=== PATIENT | male | born 1935 | race Caucasian/White ===

== ENCOUNTER 2017-05-10 14:26 | Inpatient (IN) | payer MEDICARE ==
[2017-05-10 21:05] LABS: BASOPHILS 0.1 % (0-2); EOSINOPHILS 0.2 % (0-7); HEMATOCRIT 41.8 % (42.0-54.0); HEMOGLOBIN 14.4 g/dL (13.5-17.5); IMMATURE GRANULOCYTES 0.3 % (0-5); LYMPHOCYTES 9.1 % (15-50); MCH 33.5 pg (26.0-34.0); MCHC 34.4 g/dL (31.0-37.0); MCV 97.2 fL (80.0-100.0); MEAN PLATELET VOLUME 10.6 fL (7.4-10.4); NEUTROPHILS 81.3 % (40-80); RDW 13.2 % (11.5-14.5); WBC 10.8 10x3/uL (4.8-10.8)
[2017-05-10 21:06] LABS: PLATELET COUNT 78 10x3/uL (130-400)
[2017-05-10 21:10] LABS: APTT 40.3 SECONDS (22.8-39.4); INR 1.47 (0.85-1.17); PROTIME 17.7 SECONDS (11.6-15.0)
[2017-05-10 21:17] LABS: ALBUMIN 3.1 g/dL (3.4-5.0); ALKALINE PHOSPHATASE 98 U/L (46-116); ALT (SGPT) 44 U/L (10-68); CALC OSMOLALITY 282 mosm/kg (275-300); CALCIUM 8.5 mg/dL (8.5-10.1); CARBON DIOXIDE 24.9 mmol/L (21.0-32.0); CHLORIDE - SERUM 106 mmol/L (98-107); GLUCOSE 129 mg/dL (74-106); POTASSIUM - SERUM 4.3 mmol/L (3.5-5.1); PROTEIN - SERUM 7.3 g/dL (6.4-8.2); SODIUM 139 mmol/L (136-145); UREA NITROGEN 20 mg/dL (7-18); eGFR NON AFRICAN AMERICAN 76 mL/min (90-120)
[2017-05-10 21:29] LABS: PLATELET ESTIMATE DECREASED
[2017-05-10] MEDS ORDERED: ZOCOR20 MG PO (21:29)
[2017-05-10] MEDS ORDERED: LEVOTHYROXINE50 MCG PO (21:30)
--- NOTE | 2017-05-10 21:30 | NUR ---
RECEIVED PT TO FLOOR FROM ER VIA STRETCHER. PT RATES PAIN 9/10 WHEN HE TRIES TO MOVE. LISTED AND REVIEWED HOME MEDS AND HISTORY. COMPLETE ASSESSMENT PER FLOW-SHEET. NO OTHER NEEDS. WILL CONTINUE TO MONITOR.
[2017-05-10] MEDS ORDERED: OMEPRAZOLE20 M1 PO (21:31)
[2017-05-10] MEDS ORDERED: CARAFATE1 G PO (21:31)
[2017-05-10] MEDS ORDERED: MULTIPLE VITAMI1 TA1 PO (21:32)
[2017-05-10] MEDS ORDERED: BAYER CHEWABLE81 MG PO (21:32)
[2017-05-10] MEDS ORDERED: SUDAFED 30 MG T30 MG PO (21:33)
[2017-05-10] MEDS ORDERED: ULTRAM50 MG PO (21:34)
[2017-05-10 23:19] VITALS: BP 154/79; BMI 25.9
[2017-05-11] VITALS: BP 142/73
[2017-05-11 04:00] VITALS: BP 134/60
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
[2017-05-11 08:00] VITALS: BP 142/65
--- NOTE | 2017-05-11 09:00 | NUR ---
PT RATED PAIN 3/10 ON HIS LEFT HIP AND HIS LEFT SIDE OF CHEST. MORPHINE 2MG GIVEN PER ORDERS FOR PAIN. WILL CONTINUE TO MONITOR.
[2017-05-11 09:43] LABS: BASOPHILS 0.1 % (0-2); EOSINOPHILS 1.5 % (0-7); HEMATOCRIT 41.3 % (42.0-54.0); HEMOGLOBIN 14.1 g/dL (13.5-17.5); IMMATURE GRANULOCYTES 0.2 % (0-5); LYMPHOCYTES 7.9 % (15-50); MCH 33.2 pg (26.0-34.0); MCHC 34.1 g/dL (31.0-37.0); MCV 97.2 fL (80.0-100.0); MEAN PLATELET VOLUME 10.7 fL (7.4-10.4); MONOCYTES 5.8 % (2-11); NEUTROPHILS 84.5 % (40-80); PLATELET COUNT 65 10x3/uL (130-400); RBC 4.25 10x6/uL (4.20-6.10); RDW 13.6 % (11.5-14.5); WBC 10.2 10x3/uL (4.8-10.8)
[2017-05-11 10:01] LABS: ALBUMIN 2.8 g/dL (3.4-5.0); ANION GAP 10.9 mmol/L (8-16); BILIRUBIN - TOTAL 1.84 mg/dL (0.2-1.3); CALCIUM 8.1 mg/dL (8.5-10.1); CARBON DIOXIDE 27.1 mmol/L (21.0-32.0); CREATININE - SERUM 1.1 mg/dL (0.6-1.3); PROTEIN - SERUM 7.3 g/dL (6.4-8.2)
--- NOTE | 2017-05-11 10:28 | NUR ---
Rehab Note- Acute Rehab Prescreen Order received. The patient has [facility] and will require a PreAuth prior to an acute rehab stay. Will need PT and OT Eval for PreAuth. Will begin PreAuth process. Thank you for this referral! Carolina Dickson RN Clinical Liaison, [facility] Rehab
[2017-05-11 12:14] VITALS: BP 147/69
--- NOTE | 2017-05-11 15:38 | NUR ---
PT RESTING COMFORTABLY. FAMILY DENIES ANY NEEDS AT THIS TIME. WILL CONTINUE TO ASSESS.
[2017-05-11 16:39] VITALS: BP 168/74
--- NOTE | 2017-05-11 16:47 | NUR ---
PT STATES THAT HE IS COMFORTABLY AT THIS TIME. HE HAS BEEN ABLE TO MOVE LEFT LEG A LITTLE MORE. DENIES ANY NEEDS AT THIS TIME. WILL CONTINUE TO MONITOR.
--- NOTE | 2017-05-11 17:12 | NUR ---
Patient Name: GWEN CRISTINA Admission Status: ER Accout number: [id number] Admission Date: 05-10-2017 : 1935 Admission Diagnosis: Attending: DIPESH DENTON Current LOS: 1 Anticipated DC Date: 05-13-2017 Planned Disposition: [facility] Facility Primary Insurance: [facility] Discharge Planning Comments: CM MET WITH PATIENT AND SON (JOSE ANGEL) REGARDING D/C NEEDS AND PLANS. PATIENT WANTS TO STAY HERE FOR REHAB AND DR. CHERRY PUT IN A REHAB CONSULT. PATIENTS SON IS ALSO CHOOSING A SNF IF PATIENT NOT ACCEPTED HERE. HE WILL LET CM KNOW TOMORROW HIS CHOICE. PATIENT HAS 2 STEPS TO ENTER HOME AND NO STAIRS INSIDE. PATIENTS PCP IS DR. WILCOX AND PHARMACY IS [facility] [address]. PATIENT IS INDEPENDENT WITH HIS CARE AND HAS NO DME AT HOME. CM WILL CONTINUE TO FOLLOW PATIENT WITH D/C NEEDS AND PLANS. PCP DR[facility]- [phone] JOSE ANGEL (SON) [phone] Analysis Manager: Renetta Mccray Is the patient Alert and Oriented? Yes 0 * How many steps to enter\exit or inside your home? 2 0 * PCP DR. WILCOX 0 * Pharmacy [facility] [address] 0 * Preadmission Environment Home Alone 0 * ADLs Independent 0 * Equipment None 0 * List name and contact numbers for known caregivers / representatives who currently or will assist patient after discharge: JOSE ANGEL (SON) [phone] 0 * Community resources currently utilized None 0 * Additional services required to return to the preadmission environment? Yes 0 * Can the patient safely return to the preadmission environment? Yes 0 * Has this patient been hospitalized within the prior 30 days at any hospital? No 0 Grand Total: 0
--- NOTE | 2017-05-11 17:29 | NUR ---
OT NOTE: PT COMPLETED BUE FM SKILLS FOR INCREASED I WITH ADLS. BERNIE KYLE COTA/Braden
--- NOTE | 2017-05-11 19:00 | NUR ---
Received patient resting in bed with eyes closed, assessment completed per flowsheet. Patient AO x4, calm and cooperative. Eyes PERRLA @ 4mm with brisk response, sclera is white. S1/S2 noted NSR on telemetry with HR 94, rhytmic and regular. Breathing is even and unlabored on 2L via NC with O2 sat 96%, lung sounds clear bilateral upper and mid with diminished lower. Abdomen is round and soft with bowel sounds active x4, non-tender. Patient utilizes urinal jug without assistance, clear yellow urine noted in collection. Full ROM all extremities with all pulses palpable, cap refill < 3 sec with skin warm/dry to touch. Patient states pain 6/10 L pelvic area, PRN pain medication given and will reassess. No further needs at this time, all VSS and will continue to monitor.
[2017-05-11 20:00] VITALS: BP 103/68
--- NOTE | 2017-05-11 21:00 | NUR ---
All HS meds given without difficulty, patient denies further needs at this time. All VSS and will continue to monitor.
--- NOTE | 2017-05-11 23:00 | NUR ---
Reassessment completed per flowsheet, patient resting in bed with eyes closed. Patient AO x4, calm and cooperative. S1/S2 noted NSR on telemetry with HR 96, rhythmic and regular. Breathing is even and unlabored on 2L via NC, lung sounds clear bilateral upper and mid with diminished lower. All pulses palpable with cap refill < 3 sec. Patient denies pain or other needs at this time, all VSS and will continue to monitor.
[2017-05-12] VITALS: BP 165/80
--- NOTE | 2017-05-12 01:00 | NUR ---
Patient resting in bed with eyes closed, breathing is even and unlabored. Repositioned for comfort, no further needs at this time and will continue to monitor.
--- NOTE | 2017-05-12 03:00 | NUR ---
Reassessment completed per flowsheet, patient resting in bed with eyes closed. Patient AO x4 calm and cooperative. S1/S2 noted NSR on telemetry with HR 78, rhythmic and regular. Breathing is even and unlabored on 2L via NC with O2 sat 95%. Patient c/o L side pelvic pain, repositioned and will provide medication upon request. All pulses palpable with cap refill < 3 sec, skin warm/dry to touch. No further needs at this time, all VSS and will continue to monitor.
[2017-05-12 04:00] VITALS: BP 149/79
--- NOTE | 2017-05-12 05:00 | NUR ---
AM labs collected without difficulty, patient resting in bed with eyes open. Emptied urinal jug, 125ml dark concentrated urine noted. No further needs at this time, all VSS and will continue to monitor.
[2017-05-12 05:39] LABS: BASOPHILS 0.2 % (0-2); EOSINOPHILS 2.5 % (0-7); HEMATOCRIT 39.3 % (42.0-54.0); HEMOGLOBIN 13.5 g/dL (13.5-17.5); IMMATURE GRANULOCYTES 0.3 % (0-5); LYMPHOCYTES 9.7 % (15-50); MCH 33.5 pg (26.0-34.0); MCHC 34.4 g/dL (31.0-37.0); MCV 97.5 fL (80.0-100.0); MONOCYTES 9.4 % (2-11); NEUTROPHILS 77.9 % (40-80); PLATELET COUNT 61 10x3/uL (130-400); RBC 4.03 10x6/uL (4.20-6.10); RDW 13.3 % (11.5-14.5); WBC 10.6 10x3/uL (4.8-10.8)
[2017-05-12 05:56] LABS: ALBUMIN 2.7 g/dL (3.4-5.0); ALKALINE PHOSPHATASE 93 U/L (46-116); ALT (SGPT) 34 U/L (10-68); BILIRUBIN - TOTAL 2.11 mg/dL (0.2-1.3); CALC OSMOLALITY 273 mosm/kg (275-300); CALCIUM 7.6 mg/dL (8.5-10.1); CARBON DIOXIDE 22.5 mmol/L (21.0-32.0); CHLORIDE - SERUM 101 mmol/L (98-107); CREATININE - SERUM 0.9 mg/dL (0.6-1.3); GLUCOSE 145 mg/dL (74-106); POTASSIUM - SERUM 4.1 mmol/L (3.5-5.1); PROTEIN - SERUM 6.6 g/dL (6.4-8.2); SODIUM 135 mmol/L (136-145); UREA NITROGEN 16 mg/dL (7-18); eGFR NON AFRICAN AMERICAN 86 mL/min (90-120)
--- NOTE | 2017-05-12 07:00 | NUR ---
REPORT RECIEVED ASSUMED CARE. PATIENT IN BED WITH IV INTACT. NO COMPLAINTS OR SIGNS OF DISTRESS. CALL LIGHT WITHIN REACH.
[2017-05-12 08:20] VITALS: BP 160/79
[2017-05-12 12:47] VITALS: BP 155/76
--- NOTE | 2017-05-12 15:04 | NUR ---
PATIENT LAYING IN BED AT THIS TIME WITH IV NTACT. NO COMPLAINT. BSCDS ON AND WORKING. CALL LIGHT WITHIN REACH.
[2017-05-12 15:54] VITALS: BP 147/72
--- NOTE | 2017-05-12 17:40 | NUR ---
PATIENT IN BED SITTING UP EATING. NO COMPLAINTS AT THIS TIME. IV INTACT. CALL LIGHT WITHIN REACH. BSCDS ON AND WORKING.
--- NOTE | 2017-05-12 18:31 | NUR ---
PATIENT IN BED WITH IV INTACT. TOOK BSCDS OFF AT THIS TIME. NO COMPLAINTS OR SIGNS OF DISTRESS. CALL LIGHT WITHIN REACH.
--- NOTE | 2017-05-12 19:25 | NUR ---
SHIFT ASSESSMENT COMPLETE. PT IS A&O X4 AND IS ASKING FOR PAIN MEDS AT THIS TIME. ADMINISTERED PRN MORPHINE. REPOSITIONED FOR COMFORT. S1S2 AUDIBLE, HR 94 NORMAL SINUS RHYTHM. LUNG SOUNDS CLEAR THROUGHOUT ALL LOBES. ABD IS FLAT AND NON TENDER TO TOUCH. BS ACTIVE X4. PT'S URINE IS DARK AND CONCENTRATED. EMPTIED URINAL ON BED SIDE TABLE. RADIAL AND PEDAL PULSES PALP. HE IS IN GOOD SPIRITS WITH NO FURTHER REQUESTS. WILL CONT WITH POC.
[2017-05-12 20:00] VITALS: BP 159/68
--- NOTE | 2017-05-12 23:20 | NUR ---
PT IS COMPLAINING OF GENERALIZED PAIN THAT INCREASES WHEN HE COUGHS. REQUESTS PAIN MEDS. ADMINISTERED PRN PAIN MEDICAITON. WILL CONT WITH POC.
[2017-05-13] VITALS: BP 156/71
--- NOTE | 2017-05-13 03:00 | NUR ---
NO SIGNS OF ACUTE DISTRESS NOTED. WILL CONT WITH POC.
[2017-05-13 04:00] VITALS: BP 159/81
[2017-05-13 05:39] LABS: BASOPHILS 0.2 % (0-2); HEMATOCRIT 38.4 % (42.0-54.0); HEMOGLOBIN 13.3 g/dL (13.5-17.5); IMMATURE GRANULOCYTES 0.3 % (0-5); LYMPHOCYTES 14.3 % (15-50); MCH 33.5 pg (26.0-34.0); MCHC 34.6 g/dL (31.0-37.0); MCV 96.7 fL (80.0-100.0); MEAN PLATELET VOLUME 10.9 fL (7.4-10.4); MONOCYTES 11.4 % (2-11); NEUTROPHILS 71.8 % (40-80); PLATELET COUNT 59 10x3/uL (130-400); RBC 3.97 10x6/uL (4.20-6.10); RDW 13.2 % (11.5-14.5); WBC 9.3 10x3/uL (4.8-10.8)
[2017-05-13 05:54] LABS: ALBUMIN 2.5 g/dL (3.4-5.0); ALKALINE PHOSPHATASE 81 U/L (46-116); ALT (SGPT) 32 U/L (10-68); CALC OSMOLALITY 279 mosm/kg (275-300); CARBON DIOXIDE 25.3 mmol/L (21.0-32.0); CHLORIDE - SERUM 104 mmol/L (98-107); GLUCOSE 133 mg/dL (74-106); POTASSIUM - SERUM 4.1 mmol/L (3.5-5.1); PROTEIN - SERUM 6.5 g/dL (6.4-8.2); SODIUM 138 mmol/L (136-145); UREA NITROGEN 17 mg/dL (7-18); eGFR NON AFRICAN AMERICAN 76 mL/min (90-120)
--- NOTE | 2017-05-13 07:45 | NUR ---
ASSESSMENT COMPLETE, VS STABLE. IV INTACT. SCABS AND SORES TO LEFT UPPER EXT AND LEG. NOT OPEN OR DRAINING. HEALING. DRESSING TO BUTTOCKS CLEAN AND DRY. CALL LIGHT WITHIN REACH.
[2017-05-13 08:00] VITALS: BP 154/73
--- NOTE | 2017-05-13 08:50 | NUR ---
PATIENT UP TO BSC PER PT.
--- NOTE | 2017-05-13 09:00 | NUR ---
PATIENT BACK TO BED WITH ASSIST OF PT. IV INTACT. NO COMPLAINTS. BSCDS PLACED BACK ON PATIENT. CALL LIGHT WITHIN REACH.
[2017-05-13 09:24] LABS: % SATURATION 39 % (15-55); IRON 89 ug/dl (35-150); TOTAL IRON BIND CAPACITY 223 ug/dl (260-445); UNSAT IRON BIND CAPACITY 134 ug/dl (150-375)
--- NOTE | 2017-05-13 11:15 | NUR ---
PATIENT SITTING UP IN BED WITH IV INTACT. EYES CLOSED RESTING. BSCDS ON AND WORKING. CALL LIGHT WITHIN REACH.
[2017-05-13 12:26] VITALS: BP 152/69
--- NOTE | 2017-05-13 13:19 | NUR ---
PATIENT IN BED WITH IV INTACT. NO COMPLAINTS AT THIS TIME. SITTING UP IN BED. STATED HE WOULD EAT LUNCH IN A LITTLE WHILE. BSCDS ON AND WORKING. CALL LIGHT WITHIN REACH. BA ON.
--- NOTE | 2017-05-13 13:25 | NUR ---
OT NOTE: PT RESTING IN BED; NO FAMILY AVAILABLE AT THIS TIME. PT REPORTED THAT HE WAS STILL VERY SORE, HE HAD DIFFICULTY TURNING HIS HEAD TOWARDS THE LEFT. REQUESTED THAT PT SIT ON EDGE OF BED, HOWEVER, HE REPORTED THAT HE HAD JUST BEEN UP TO TOILET WITH PHYS THERAPY , AND HAD JUST RETURNED TO BED. PT AGREEABLE TO BED MOB BUT REQUIRED EXTENSIVE ASSIST. WILL ATTEMPT SIDE OF BED SITTING IN PM AND UE AROM EXS IF TOLERATED
--- NOTE | 2017-05-13 14:24 | NUR ---
CM SPOKE TO PATIENT AND FAMILY IN LENGTH FOR DISCHARGE PLANNING NEEDS. FAMILY WOULD LIKE HIM TO GO TO [facility] IN [place]. REFERRAL SENT AND SPOKE WITH SAILAJA. CM WILL CONTINUE TO FOLLOW AND ASSIST WITH DISCHARGE PLANNING NEEDS.
--- NOTE | 2017-05-13 16:00 | NUR ---
PATIENT IN BED WITH IV INTACT. NO COMPLAINTS OR SIGNS OF DISTRESS. CALL LIGHT WITHIN REACH.
[2017-05-13 16:07] VITALS: BP 140/63
--- NOTE | 2017-05-13 18:45 | NUR ---
PATIENT IN BED WITH EYES CLOSED RESTING QUIETLY. NO COMPLAINTS OR SIGNS OF DISTRESS. BSCDS ON AND WORKING. CALL LIGHT WITHIN REACH.
--- NOTE | 2017-05-13 19:07 | NUR ---
RESIEVED UP IN BED WITH EYES OPEN AND TV ON. AWAKE ALET AND ORIENTED. DENIES ANY PAIN. IV TO LFA WITH NS RUNNING AT KVO. SCD'S IN PLACE AND FUNCTIONING PROPERLY.
[2017-05-13 20:00] VITALS: BP 151/72
[2017-05-14] VITALS: BP 151/67
[2017-05-14 04:00] VITALS: BP 156/71
[2017-05-14 05:24] LABS: BASOPHILS 0.2 % (0-2); EOSINOPHILS 3.1 % (0-7); HEMOGLOBIN 12.9 g/dL (13.5-17.5); IMMATURE GRANULOCYTES 0.1 % (0-5); LYMPHOCYTES 18.8 % (15-50); MCH 33.6 pg (26.0-34.0); MCHC 34.9 g/dL (31.0-37.0); MCV 96.4 fL (80.0-100.0); MEAN PLATELET VOLUME 11.2 fL (7.4-10.4); MONOCYTES 12.6 % (2-11); NEUTROPHILS 65.2 % (40-80); RBC 3.84 10x6/uL (4.20-6.10); RDW 13.3 % (11.5-14.5); WBC 8.3 10x3/uL (4.8-10.8)
[2017-05-14 05:30] LABS: PLATELET COUNT 71 10x3/uL (130-400)
[2017-05-14 06:01] LABS: ALBUMIN 2.4 g/dL (3.4-5.0); ALKALINE PHOSPHATASE 84 U/L (46-116); ALT (SGPT) 31 U/L (10-68); BILIRUBIN - TOTAL 1.96 mg/dL (0.2-1.3); CALC OSMOLALITY 273 mosm/kg (275-300); CARBON DIOXIDE 24.1 mmol/L (21.0-32.0); CHLORIDE - SERUM 103 mmol/L (98-107); CREATININE - SERUM 0.9 mg/dL (0.6-1.3); GLUCOSE 128 mg/dL (74-106); POTASSIUM - SERUM 3.7 mmol/L (3.5-5.1); PROTEIN - SERUM 6.4 g/dL (6.4-8.2); SODIUM 135 mmol/L (136-145); UREA NITROGEN 19 mg/dL (7-18); eGFR NON AFRICAN AMERICAN 86 mL/min (90-120)
--- NOTE | 2017-05-14 07:30 | NUR ---
ASSESSMENT PER FLOW SHEET.PT WIHTOUT DISTRESS.PAIN MEDS ORDERED PER MAR FOR PAIN TO LEFT LEG AND SHOULDER 2/10 SCALE.DENIES FURTHER NEEDS.CALL LIGHT IN REACH.
[2017-05-14 07:51] VITALS: BP 140/75
[2017-05-14 08:20] LABS: FOLATE (FOLIC ACID) - SERUM 10.8 ng/mL (>3.0)
[2017-05-14] MEDS ORDERED: NORCO 7.5/325 T1 TA1 PO (08:34)
[2017-05-14] MEDS ORDERED: ELIQUIS2.5 MG PO (09:52)
--- NOTE | 2017-05-14 11:11 | NUR ---
PATIENT BEING DISCHARGED TODAY TO [facility] IN [place]. PATIENT WILL BE GOING VIA THEIR VAN. SON (JOSE ANGEL) NOTIFIED OF DISCHARGE. PATIENT DENIES ANY OTHER NEEDS AT THIS TIME. PT BEING DISCHARGE TO A SKILLED BED
--- NOTE | 2017-05-14 11:22 | NUR ---
[facility] REPORT GIVEN TO DAPHNE
--- NOTE | 2017-05-14 11:43 | NUR ---
IV DCD WITH CATH INTACT. DISCHARGE INSTRUCTIONS,STATES UNDERSTANDING. WAITING ON RIDE TO [place]
--- NOTE | 2017-05-14 12:48 | NUR ---
[facility]
[2017-05-15 18:09] LABS: HEPARIN INDUCED PLATELET AB 0.644 OD (0.000-0.400)
== END 2017-05-14 12:49 | DRG 536 ==
LOC: D.ER 14:26 → D.MS 20:23
PROVIDERS: Internal Medicine Hematology & Oncology; Nurse Practitioner Acute Care; ADMIT Family Medicine
DX: S32.492A Other specified fracture of left acetabulum, initial encounter for closed fracture (principal); E03.9 Hypothyroidism, unspecified; I25.10 Atherosclerotic heart disease of native coronary artery without angina pectoris; K21.9 Gastro-esophageal reflux disease without esophagitis; V86.59XA Driver of other special all-terrain or other off-road motor vehicle injured in nontraffic accident, initial encounter; D69.6 Thrombocytopenia, unspecified; S30.0XXA Contusion of lower back and pelvis, initial encounter

== ENCOUNTER → 2017-09-02 11:03 | Outpatient (CLI) | payer MEDICARE ==
[~2017-09-02 11:03] MED LIST: BAYER CHEWABLE81 MG PO; CARAFATE1 G PO; ELIQUIS2.5 MG PO; LEVOTHYROXINE50 MCG PO; MULTIPLE VITAMI1 TA1 PO; NORCO 7.5/325 T1 TA1 PO; OMEPRAZOLE20 M1 PO; SUDAFED 30 MG T30 MG PO; ULTRAM50 MG PO; ZOCOR20 MG PO
== END | disposition home or self-care (01) ==
LOC: D.CT 11:03
DX: R51 Headache (principal); R42 Dizziness and giddiness

== ENCOUNTER → 2018-05-24 10:13 | Outpatient (CLI) | payer MEDICARE | END | disposition home or self-care (01) | LOC: D.CT 10:13 | DX: N20.0 Calculus of kidney (principal) ==

== ENCOUNTER 2018-07-23 07:15 | Day surgery (SDC) | payer MEDICARE ==
[2018-07-22 10:51] LABS: BASOPHILS 0.2 % (0-2); HEMATOCRIT 42.4 % (42.0-54.0); HEMOGLOBIN 14.8 g/dL (13.5-17.5); IMMATURE GRANULOCYTES 0.3 % (0-5); LYMPHOCYTES 17.9 % (15-50); MCH 34.7 pg (26.0-34.0); MCHC 34.9 g/dL (31.0-37.0); MCV 99.5 fL (80.0-100.0); MEAN PLATELET VOLUME 10.2 fL (7.4-10.4); MONOCYTES 11.7 % (2-11); NEUTROPHILS 67.9 % (40-80); RBC 4.26 10x6/uL (4.20-6.10); RDW 16.2 % (11.5-14.5); WBC 8.9 10x3/uL (4.8-10.8)
[2018-07-22 11:00] LABS: APTT 35.5 SECONDS (22.8-39.4); INR 1.28 (0.85-1.17); PROTIME 15.4 SECONDS (11.6-15.0)
[2018-07-22 11:04] LABS: ALBUMIN 2.7 g/dL (3.4-5.0); ALKALINE PHOSPHATASE 119 U/L (46-116); ALT (SGPT) 60 U/L (10-68); BILIRUBIN - TOTAL 1.07 mg/dL (0.2-1.3); CALC OSMOLALITY 278 mosm/kg (275-300); CALCIUM 8.5 mg/dL (8.5-10.1); CARBON DIOXIDE 26.7 mmol/L (21.0-32.0); CHLORIDE - SERUM 104 mmol/L (98-107); CREATININE - SERUM 0.9 mg/dL (0.6-1.3); GLUCOSE 93 mg/dL (74-106); POTASSIUM - SERUM 3.7 mmol/L (3.5-5.1); PROTEIN - SERUM 7.9 g/dL (6.4-8.2); SODIUM 139 mmol/L (136-145); UREA NITROGEN 14 mg/dL (7-18); eGFR NON AFRICAN AMERICAN 85 mL/min (90-120)
[2018-07-22 11:08] LABS: PLATELET COUNT 100 10x3/uL (130-400)
[~2018-07-23] VITALS: Ht 170.2 cm; Wt 79.1 kg
[2018-07-23 07:57] VITALS: BP 138/69; BMI 27.3
[2018-07-23 17:20] VITALS: BP 150/92
[2018-07-23 17:26] VITALS: BP 150/92; Ht 170.2 cm; Wt 79.1 kg
[2018-07-23 20:00] VITALS: BP 157/79
--- NOTE | 2018-07-23 21:15 | NUR ---
SPOKE W/DR. BOYER FOR CONSULT ORDERED BY DR VELASQUEZ FOR INCREASED HR AND RHYTHM CHANGES. RECEIVED ORDER AND GAVE LOPRESSOR 50 MG PO. BRUNILDA DRAIN LEAKING AT SIGHT. COPIOUS AMOUNTS OF SEROS[place] FLUID COMING FROM BRUNILDA DRAIN. DR. VELASQUEZ CONNECTED BRUNILDA DRAIN TO WALL SUCTION. CHANGED DRAIN SITE DRESSING. SET UP FURS SALESPERSON PER ORDER AND TEACHING ON USE OF. ASSESSMENT COMPLETE PER FLOW-SHEET. NO OTHER NEEDS. WILL CONTINUE TO MONITOR.
[2018-07-24] VITALS: BP 132/76
[2018-07-24 04:00] VITALS: BP 124/72
[2018-07-24 06:49] LABS: BASOPHILS 0.1 % (0-2); EOSINOPHILS 0 % (0-7); HEMATOCRIT 58.6 % (42.0-54.0); HEMOGLOBIN 20.6 g/dL (13.5-17.5); IMMATURE GRANULOCYTES 0.3 % (0-5); LYMPHOCYTES 6.6 % (15-50); MCH 34.9 pg (26.0-34.0); MCHC 35.2 g/dL (31.0-37.0); MCV 99.3 fL (80.0-100.0); MEAN PLATELET VOLUME 12.4 fL (7.4-10.4); MONOCYTES 4.1 % (2-11); NEUTROPHILS 88.9 % (40-80); PLATELET COUNT 52 10x3/uL (130-400); RDW 16.3 % (11.5-14.5); WBC 10.8 10x3/uL (4.8-10.8)
[2018-07-24 07:22] LABS: ALBUMIN 2.4 g/dL (3.4-5.0); ALKALINE PHOSPHATASE 102 U/L (46-116); ALT (SGPT) 61 U/L (10-68); BILIRUBIN - TOTAL 1.37 mg/dL (0.2-1.3); CALC OSMOLALITY 282 mosm/kg (275-300); CALCIUM 8.7 mg/dL (8.5-10.1); CARBON DIOXIDE 22.3 mmol/L (21.0-32.0); CHLORIDE - SERUM 105 mmol/L (98-107); GLUCOSE 145 mg/dL (74-106); MAGNESIUM - SERUM 1.8 mg/dL (1.8-2.4); PHOSPHOROUS 3.1 mg/dL (2.5-4.9); POTASSIUM - SERUM 4.3 mmol/L (3.5-5.1); PROTEIN - SERUM 7.6 g/dL (6.4-8.2); SODIUM 139 mmol/L (136-145); TROPONIN-I 0.036 ng/mL (0.000-0.060); UREA NITROGEN 19 mg/dL (7-18); eGFR NON AFRICAN AMERICAN 76 mL/min (90-120)
[2018-07-24 07:36] LABS: PLATELET ESTIMATE NORMAL
[2018-07-24 08:30] VITALS: BP 98/78
--- NOTE | 2018-07-24 09:32 | NUR ---
PT ALERT X 4. BREATH SOUNDS CLEAR BILAT. TELEMETRY IN PLACE. STERISTRIP DRESSING TO MIDABDOMEN, CLEAN DRY AND INTACT. DRAIN TO LEFT SIDE OF ABDOMEN, DRAINAGE RED, ATTACHED TO WALL SUCTION. IV TO RIGHT FOREARM, PATENT DRESSING CLEAN DRY AND INTACT. PAIN OF 4/10, MACHINE DESIGN ENGINEER IN PLACE, WILL MONITOR. SCD'S IN PLACE. FAMILY AT BEDSIDE. BED LOW, CALL LIGHT IN REACH, NO OTHER NEEDS AT THIS TIME.
--- NOTE | 2018-07-24 10:55 | OP ---
PATIENT NAME: GWEN CRISTINA MEDICAL RECORD: [id number] :35 LOCATION:D.MS Dai8 ADMISSION DATE: SURGEON: HETAL VELASQUEZ MD DATE OF OPERATION: 07/23/2018 PREOPERATIVE DIAGNOSES: 1. Symptomatic gallstones. 2. Symptomatic ventral hernia. POSTOPERATIVE DIAGNOSES: 1. Symptomatic gallstones with advanced cirrhosis with moderate amount of ascites. 2. Symptomatic incarcerated ventral hernia. PROCEDURES: 1. Laparoscopic cholecystectomy. 2. Intraoperative cholangiography without immediate surgeon interpretation. 3. 14-gauge core needle liver biopsies. 4. Incarcerated ventral hernia repair without mesh. SURGEON: Hetal Velasquez MD ASSISTANT FOOD SERVICE MANAGER: Flor Lacey APN BLOOD LOSS: 50 cc. ANESTHESIA: General. COMPLICATIONS: None. DRAINS: A 10-[place]izen [place] fully fluted closed suction drainage system. The risks, possible complications, and alternatives to the procedure were explained to the patient. He elects to proceed. The indication for the liver biopsy was cirrhosis. OPERATIVE COURSE: The patient was conveyed to the operating room electively on 07/23/2018. General anesthesia was induced by the anesthesia staff. The abdomen was sterilely prepped and draped. An incision was accomplished within the umbilicus. I dissected down to incarcerated preperitoneal fat, which was excised. I then sharply cleaned surrounding connective tissue from the umbilical hernia defect. A 12-mm trocar was advanced down through the umbilical hernia defect. CO2 insufflation was begun. Once a sufficient pneumoperitoneum had been achieved, a 5-mm trocar was inserted in the left upper quadrant. Another 5-mm trocar was inserted in the epigastrium. Another 5-mm trocar was inserted far laterally in the right upper quadrant. During insertion of the trocars, there was no apparent injury to the bowels, any intraperitoneal or retroperitoneal structures. Abdominal survey was undertaken. There was a moderate amount of ascites present. The liver was cirrhotic and this appeared to be advanced cirrhosis. Under laparoscopic guidance, I percutaneously accessed the right upper quadrant with a 14-gauge core needle liver biopsy device. Cores were obtained over the OPERATIVE REPORT [id number] GWEN CRISTINA convexity of the liver. The biopsy sites were made hemostatic with the electrocautery. I advanced a cholangiogram trocar. I punctured the fundus of the gallbladder. I aspirated bile. I then injected dye. Real time cholangiographic images were obtained and these were sent to the radiologist for interpretation. I aspirated bile and withdrew the cholangiogram trocar. The gallbladder was grasped and retracted cephalad. The infundibulum was grasped and retracted laterally. Blunt dissection was begun in the triangle of Calot. One cystic artery and one cystic duct were identified. These were clipped multiply and divided between clips. The gallbladder was then excised from its bed in the liver. It was placed within a bag retrieval device and was withdrawn through the umbilical fascia defect. The 12-mm trocar was replaced. I irrigated and aspirated in the right upper quadrant. There was no bleeding even at low pressure of 8. I advanced a 10-[place]izen [place] closed suction drain through the lateral most trocar site in the right upper quadrant. All the trocars were removed and the abdomen was desufflated. The drain is an indicator drain in case the patient begins to bleed tonight. He is at an increased risk for bleeding due to cirrhosis. The drain was sutured to the skin with 4-0 nylon. I closed the hernia defect with a [id number] #0 Vicryl suture. The herniorrhaphy was then completed with a #1 Surgidac suture. The skin at the umbilicus was closed with interrupted 4-0 Vicryl Rapide sutures. The trocar sites were closed with interrupted intracuticular 3-0 Vicryls. Benzoin and Steri-Strips were applied. The patient was then extubated and conveyed to the postanesthesia care unit, where he was in stable condition. He will be observed overnight for bleeding and he will be given IV narcotic analgesia. I will plan that he will be dismissed home tomorrow after the drain is removed. TRANSINT:[id number] Voice Confirmation ID: [id number] DOCUMENT ID: [id number] HETAL VELASQUEZ MD at 1055 CC: MYLES WILCOX [id number] DICTATION DATE: 07/23/181612 RIVET TESTER: 07/23/182204 [facility] [address] [place] [address]
--- NOTE | 2018-07-24 19:45 | NUR ---
PT STANDING UP BESIDE BED. PULLED RIGHT FOREARM IV OUT. IV RESITED TO RIGHT HAND BY JOSE HINDS. IV FLUIDS RESUMED. BRUNILDA TO WALL SUCTION DRAINING SEROUS FLUID. ORDER TO REMOVE BRUNILDA DRAIN AND PLACE STOMAL APPLIANCE. PT REQUESTS BRUNILDA STAY IN AND HOOKED UP TO SUCTION UNTIL MORNING SO HE CAN TRY TO GET SOME SLEEP. ASSESSMENT COMPLETE PER FLOW-SHEET. WILL CONTINUE TO MONITOR.
[2018-07-24 19:47] VITALS: BP 115/60
[2018-07-25] VITALS: BP 127/75; BP 133/71
[2018-07-25 04:02] VITALS: BP 129/68
--- NOTE | 2018-07-25 06:15 | NUR ---
PULLED BRUNILDA DRAIN AND PUT ON STOMAL APPLIANCE. 825 MLS OUTPUT OF SEROUS DRAINAGE FOR SHIFT. WILL CONTINUE TO MONITOR.
[2018-07-25 09:03] VITALS: BP 131/69
[2018-07-25 09:30] LABS: BASOPHILS 0.1 % (0-2); EOSINOPHILS 0.4 % (0-7); IMMATURE GRANULOCYTES 0.3 % (0-5); LYMPHOCYTES 13.1 % (15-50); MCH 34.8 pg (26.0-34.0); MCHC 34.6 g/dL (31.0-37.0); MCV 100.5 fL (80.0-100.0); MEAN PLATELET VOLUME 10.8 fL (7.4-10.4); MONOCYTES 8.7 % (2-11); NEUTROPHILS 77.4 % (40-80); RDW 16.6 % (11.5-14.5); WBC 13.4 10x3/uL (4.8-10.8)
[2018-07-25 09:32] LABS: HEMATOCRIT 42.2 % (42.0-54.0); HEMOGLOBIN 14.6 g/dL (13.5-17.5); PLATELET COUNT 115 10x3/uL (130-400)
[2018-07-25 09:42] LABS: INR 1.39 (0.85-1.17); PROTIME 16.5 SECONDS (11.6-15.0)
[2018-07-25 09:45] LABS: CALC OSMOLALITY 277 mosm/kg (275-300); CARBON DIOXIDE 23.3 mmol/L (21.0-32.0); CHLORIDE - SERUM 105 mmol/L (98-107); CREATININE - SERUM 0.7 mg/dL (0.6-1.3); GLUCOSE 110 mg/dL (74-106); POTASSIUM - SERUM 4.1 mmol/L (3.5-5.1); SODIUM 137 mmol/L (136-145); UREA NITROGEN 21 mg/dL (7-18)
[2018-07-25 09:46] LABS: eGFR NON AFRICAN AMERICAN > 90 mL/min (90-120)
--- NOTE | 2018-07-25 11:57 | NUR ---
PT ALERT X 4. BREATH SOUNDS CLEAR BILAT. TELEMETRY IN PLACE. IV TO RIGHT HAND, PATENT, DRESSING CLEAN DRY AND INTACT. COLOSTOMY BAG TO SURGICAL INCISION FROM DRAIN SITE ON RIGHT UPPER ABDOMEN, NO OUTPUT. SCD'S IN PLACE. REPORTING PAIN OF 1/10, SPECIALTY MANUFACTURING SUPERVISOR IN PLACE. BED LOW, CALL LIGHT IN REACH, NO OTHER NEEDS AT THIS TIME.
[2018-07-25 12:30] VITALS: BP 133/70
--- NOTE | 2018-07-25 14:23 | NUR ---
SPOKE WITH DR BOYER TO REPORT BIGEMINY PVC'S ON PT. HE STATED WE SHOULD TAKE NO ACTION AT THIS TIME.
[2018-07-25 17:15] VITALS: BP 126/63
[2018-07-25 20:00] VITALS: BP 115/63
[2018-07-26 04:00] VITALS: BP 132/966
--- NOTE | 2018-07-26 04:15 | NUR ---
PT SLEPT MOST OF NIGHT. WOKE UP AND AMBULATED HALLWAYS WITH JEAN-CLAUDE JAIMES. DRAINAGE BAG REMAINS DRY, NO OUTPUT SINCE PUTTING IT ON 24 HOURS AGO. COMPLETE ASSESSMENT PER FLOW-SHEET. WILL CONTINUE TO MONITOR.
[2018-07-26 08:25] VITALS: BP 147/75
[2018-07-26] MEDS ORDERED: METOPROLOL TART50 MG PO (08:48)
[2018-07-26] MEDS ORDERED: ULTRAM50 MG PO (08:49)
--- NOTE | 2018-07-26 09:45 | NUR ---
IV DC'D FROM RIGHT HAND, NO REDNESS OR EDEMA AT SITE. DISCHARGE INSTRUCTIONS GIVEN TO PATIENT, PATIENT VOICED UNDERSTANDING
--- NOTE | 2018-07-26 10:15 | NUR ---
PATIENT REQUEST TO AMBULATE OUT WITH FAMILY MEMBERS TO PRIVATE CAR
[2018-07-27 07:10] LABS: HEPATITIS C ANTIBODY 0.2 S/CO RAT (0.0-0.9)
--- NOTE | 2018-07-29 14:56 | CN ---
PATIENT NAME:GWEN CRISTINA MEDICAL RECORD: [id number] : 35 LOCATION:D.OPS ADMIT DATE: ACCOUNT: [id number] CONSULTING PHYSICIAN: LOYDA BOYER MD REFERRING PHYSICIAN: HETAL VELASQUEZ MD DATE OF CONSULTATION: 07/24/2018 DIAGNOSES: 1. Coronary artery disease. 2. Status post coronary bypass graft surgery. 3. Hyperlipidemia. 4. Dysrhythmia - PVCs. 5. Abnormal ECG. 6. Status post laparoscopic cholecystectomy. HISTORY OF PRESENT ILLNESS: This is a gentleman, who is status post laparoscopic cholecystectomy. In the postop phase, he had multiple PVCs. He was placed on metoprolol 50 mg b.i.d. This resolved the PVCs. Heart rate and blood pressure are much better since being on the metoprolol. He does have a past history of coronary artery disease, coronary bypass graft surgery many years ago. His EKG is abnormal suggesting inferior ischemia. PHYSICAL EXAMINATION: GENERAL APPEARANCE: Well-nourished, well-developed, appears stated age. Level of distress, comfortable. PSYCHIATRIC: Mental status, alert, normal affect. Orientation, oriented to time, place and person. EYES: Lids and conjunctiva, noninjected. No discharge, no pallor. ENT: Lips, teeth, gums, normal dentition. Oropharynx, no cyanosis, no pallor. NECK: Carotid arteries, bilateral normal upstroke, no bruits, no thrills. JUGULAR VEINS: No jugular venous pressure or distention. CERVICAL LYMPH NODES: Nontender, nonenlarged. THYROID: Not enlarged. Nontender. No nodules. LUNGS: Respiratory effort, unlabored. CHEST: Normal curvature. No thoracic deformity. No chest wall tenderness. Percussion, resonant. Auscultation, clear. No wheezes, no rales, no rhonchi. CARDIOVASCULAR: Precordial exam, nondisplaced. No heaves or pericardial thrills. Rate and rhythm, regular. Heart sounds, normal S1, normal S2. No S3, no gallop, no rub. Systolic murmur, not heard. Diastolic murmur, not heard. EXTREMITIES: No cyanosis, no edema. Peripheral pulses, full and equal in all extremities, except as noted. No bruits appreciated. ABDOMEN: Soft, nondistended. Normal aorta. No bruit. Nontender. No masses. Liver, nontender, no hepatomegaly. Spleen, nontender, no splenomegaly. MUSCULOSKELETAL: No joint tenderness. No joint swelling. No erythema. NEUROLOGICAL: Normal gait, normal strength, normal tone. SKIN: Warm and dry. OVERALL IMPRESSION: PVCs have resolved with beta-roseann therapy. We will continue the beta-roseann and we will follow up in the near future for coronary angiography. Further care depends upon the findings of the angiography. TRANSINT:[id number] Voice Confirmation ID: [id number] DOCUMENT ID: [id number] CONSULT REPORT [id number] GWEN CRISTINA, LOYDA SHEA at 1456 CC: [id number] DICTATION DATE: 07/24/18 0946 CROWN IRONER: 07/24/18 1147 [facility] 07/26/18 [id number] [place] [address]
== END 2018-07-26 11:21 | disposition home or self-care (01) ==
LOC: D.OPS 07:15 → D.MS 07:15 → D.OPS 08:00 → D.PAN 09:30 → D.OPS 09:30 → D.MS 16:47 → D.OPS 07-26 11:21
PROVIDERS: Anesthesiology; Surgery
DX: K80.10 Calculus of gallbladder with chronic cholecystitis without obstruction (principal); K74.60 Unspecified cirrhosis of liver; R18.8 Other ascites; K43.6 Other and unspecified ventral hernia with obstruction, without gangrene; Z01.812 Encounter for preprocedural laboratory examination

== ENCOUNTER 2018-09-03 06:59 | Outpatient (CLI) | payer OTHER ==
[~2018-09-03] VITALS: Ht 170.2 cm; Wt 69.5 kg
--- NOTE | ~2018-09-03 | HEMODYNAMI ---
PATIENT:GWEN CRISTINA MEDICAL RECORD: [id number] : 35 LOCATION:DANIEL ADMISSION DATE: 09/03/18 Generatedon:09/03/20189:43 Patient name: GWEN CRISTINA Patient #: [id number] SSN: : 1935 Date of study: 09/03/2018 Page: Of Hemodynamic Procedure Report Patient Data Patient Demographics Procedure consent was obtained First Name: GWEN Gender: Male Last Name: JONNIE : 1935 Middle Initial: DAVID Age: 83 year(s) Patient #: [id number] Race: Unknown Additional ID: [id number] Contact details [address]: [address] [place] [address] [address]IVE State: [place] City: [place] Zip code: [address] Past Medical History Allergies: No known allergies Admission Admission Data Admission Date: 09/03/2018 Admission Time: 6:59 Admit Source: Other Lab Results Lab Result Date: 09/03/2018 Lab Result Time: 7:55 Biochemistry Name Units Result Min Max BUN mg/dl 14 --(--*-)-- 7 18 Creatinine mg/dl 1 --(--*-)-- 0.6 1.3 CBC Name Units Result Min Max Hematocrit % 44.4 --(*---)-- 42 54 Hemoglobin g/dl 15.4 --(-*--)-- 13.5 17.5 Procedure Procedure Types Cath Procedure Diagnostic Procedure LHC LHC w/Coronaries w/Grafts Sedation Charges Moderate Sedation up to 15 minutes PCI Procedure Coronary Stent Coronary Stent Initial Procedure Description Procedure Date Procedure Date: 09/03/2018 Procedure Start Time: 9:22 Procedure End Time: 9:43 Procedure Staff Name Function Jimmy Martin MD Performing Physician Ambrose Choi RT Monitor Nisa Carlson RT Scrub Farheen Fournier RN Nurse Humberto Healy RT Microbiological Lab Technician Procedure Data Cath Procedure Fluoroscopy Diagnostic fluoroscopy Total fluoroscopy Time: 7.6 time: 7.6 min min Diagnostic fluoroscopy Total fluoroscopy dose: dose: 1134 mGy 1134 mGy Contrast Material Contrast Material Type Amount (ml) Isovue 300 125 Entry Location Entry Primary Successful Side Size Upsize Upsize Entry Closure Succes sful Closure Location (Fr) 1 (Fr) 2 (Fr) Remarks Device Remarks Femoral Right 5 Fr 6 Fr Exoseal artery Short Estimated blood loss: 10 ml Diagnostic catheters Device Type Used For End Catheter Placement MULTIPACK Pigtail 5 Fr Procedure catheter MULTIPACK JL 4.0 5Fr Procedure catheter MULTIPACK 3DRC 5Fr Procedure catheter DIAGNOSTIC AR2 MOD 5 Fr Procedure catheter ([id number]) Procedure Complications No complications Procedure Medications Medication Administration Route Dosage 0.9% NaCl I.V. 100 ml/hr Oxygen etCO2 Nasal cannula 2 l/min Lidocaine 2% added to field 20 Heparin Flush Bag added to field 2 bags (1000units/500ml NS) Versed I.V. 2 mg Fentanyl I.V. 50 mcg Versed I.V. 2 mg Fentanyl I.V. 50 mcg Heparin Bolus I.V. 4000 units Integrilin (Bolus I.V. 6.2 ml 2mg/ml) Plavix P.O. 600 mg Hemodynamics Rest HGB: 15.4 (g/dl) Heart Rate: 64 (bpm) Snapshots Pre Cath Intra NCS Post Cath Vital Signs Time Heart Resp SPO2 etCO2 NIBP (mmHg) Rhythm Pain Sedation Rate (ipm) (%) (mmHg) Status Level (bpm) 9:00:18 70 15 95 18.8 170/114(122) NSR 0 (11) 10(A) , No pain 9:04:44 65 20 100 11.3 129/70(92) NSR 0 (11) 10(A) , No pain 9:09:06 62 20 99 11.3 109/53(83) NSR 0 (11) 10(A) , No pain 9:13:16 66 19 98 10.5 106/61(83) NSR 0 (11) 10(A) , No pain 9:17:26 65 20 98 27.2 108/61(87) NSR 0 (11) 10(A) , No pain 9:21:32 65 18 97 28.6 100/71(88) NSR 0 (11) 10(A) , No pain 9:25:39 63 20 98 15.1 109/61(85) NSR 0 (11) 10(A) , No pain 9:29:51 69 17 98 18.8 99/55(79) NSR 0 (11) 9(A) , No pain 9:34:03 76 15 97 18.1 114/43(92) NSR 0 (11) 9(A) , No pain 9:38:15 71 15 98 25.6 103/65(89) NSR 0 (11) 10(A) , No pain 9:42:15 72 15 98 25.6 109/74(88) NSR 0 (11) 10(A) , No pain Medications Time Medication Route Dose Verified Delivered Reason Notes Effectiveness by by 8:59:19 0.9% NaCl I.V. 100 Jimmy Farheen used for ml/hr Veronica Fournier clinical nurse leader 8:59:25 Oxygen etCO2 2 Jimmy Farheen used for Nasal l/min Veronica Fournier procedure cannula RN 8:59:31 Lidocaine 2% added 20ml Jimmy Haywardrey for local to vial Veronica Martin MD anesthetic field 8:59:35 Heparin Flush added 2 Jimmy Jimmy used for Bag to bags Veronica Martin MD procedure (1000units/500ml field NS) 9:21:03 Versed I.V. 2 mg Jimmy Farheen for sedation Veronica Fournier RN 9:21:09 Fentanyl I.V. 50 Jimmy Farheen for sedation mcg Veronica Fournier RN 9:26:35 Versed I.V. 2 mg Jimmy Farheen for sedation Veronica Fournier RN 9:26:39 Fentanyl I.V. 50 Jimmy Farheen for sedation mcg Veronica Fournier RN 9:31:38 Heparin Bolus I.V. 4000 Jimmy Farheen for verifi ed units Veronica Fournier anticoagulation with Dr. DELLA Martin 9:33:47 Integrilin I.V. 6.2 Jimmy Fahreen for wasted (Bolus 2mg/ml) ml Veronica Fournier anticoagulation 3.8mL RN 9:34:04 Plavix P.O. 600 Jimmy Farheen for mg Veronica Fournier antiplatelet RN therapy Procedure Log Time Note 8:34:59 Informed consent obtained and on chart 8:35:02 Admit Source: Other 8:35:19 Diagnostic Cath status Elective 8:35:20 Time tracking: Regular hours (M-F 7:00 - 5:00) 8:35:25 Plan of Care:Hemodynamics will remain stable., Cardiac rhythm will remain stable., Comfort level will be maintained., Respiratory function will remain adequate., Patient/ family verbilizes understanding of procedure., Procedure tolerated without complication., Recovers from procedure without complications.. 8:46:49 Humberto Healy RT(R) sent for patient. Start room use. 8:54:13 Patient received from Pre/Post Procedure Room to CCL 1 Alert and oriented. Tansferred to table in Supine position. 8:54:14 Warm blankets applied, and destinee hugger turned on for patient comfort. 8:54:14 Correct patient and procedure confirmed by team. 8:54:15 ECG and BP/O2 sat monitors applied to patient. 8:54:18 Pre-procedure instructions explained to patient. 8:54:19 Pre-op teaching completed and patient verbalized understanding. 8:54:19 Family in waiting room. 8:54:20 Patient NPO since Midnight. 8:59:08 Vital chart was started 8:59:19 0.9% NaCl 100 ml/hr I.V. was administered by Farheen Fournier RN; used for procedure; 8:59:25 Oxygen 2 l/min etCO2 Nasal cannula was administered by Farheen Fournier RN; used for procedure; 8:59:31 Lidocaine 2% 20ml vial added to field was administered by Jimmy Martin MD; for local anesthetic; 8:59:35 Heparin Flush Bag (1000units/500ml NS) 2 bags added to field was administered by Jimmy Martin MD; used for procedure; 9:05:39 Baseline sample Acquired. 9:05:42 Rhythm: sinus rhythm 9:05:44 Full Disclosure recording started 9:05:52 H&P Date Dictated: 09/01/2018 Within 30 days and on chart., H&P Addendum completed by physician on day of procedure. (MUST COMPLETE FOR ALL OUTPATIENTS). 9:06:01 Patient allergic to No known allergies 9:06:02 Is the patient allergic to Iodine/contrast media? No. 9:06:04 Is patient on blood thinner?No 9:06:06 Patient diabetic? No. 9:06:08 Previous problem with sedation/anesthesia? No ? 9:06:10 Snore? Yes 9:06:11 Sleep apnea? No 9:06:12 Deviated septum? No 9:06:12 Opens mouth fully? Yes 9:06:14 Sticks out tongue? Yes 9:06:18 Airway obstruction? No ? 9:06:27 Dentures? No ? 9:07:22 Pre procedure: right dorsailis pedis pulse 1+ Palpable, but thready & weak; easily obliterated 9:07:24 Patient pain scale 0/10 ?. 9:07:35 IV patent on arrival in left forearm with 0.9% NaCl at [facility]. 9:09: Lab Result : BUN 14 mg/dl 9:: Lab Result : Creatinine 1 mg/dl 9:: Lab Result : Hemoglobin 15.4 g/dl 9:: Lab Result : Hematocrit 44.4 % 9:09: Lab results completed and on chart. 9:09:13 Right groin area was prepped with chlora-prep and draped in sterile fashion 9:09:14 Alarms reviewed by R. N. 9:09:15 Sharps counted by scrub and verified by R.N. 9:09:17 Use device set Femoral Dx 9:09:18 ACIST Syringe (89688) opened to sterile field. 9:09:19 Bag Decanter (2002S) opened to sterile field. 9:09:20 Medline Cath Pack ([id number]) opened to sterile field. 9:09:21 ACIST Hand Control (27300) opened to sterile field. 9:09:21 ACIST Manifold (68864) opened to sterile field. 9:09:22 Tegaderm 4 x 4 (1626W) opened to sterile field. 9:09:24 SHEATH 5FR Covina (VKG661) opened to sterile field. 9:09:27 DIAGNOSTIC Multipack 5Fr catheter set (FC8458) opened to sterile field. 9:09:28 DIAGNOSTIC WIRE .035 260cm J wire (719224) opened to sterile field. 9:09:50 Physician paged 9:18:46 Zero performed for pressure channel P1 9:20:28 --------ALL STOP TIME OUT------ 9:20:29 Final Timeout: patient, procedure, and site verified with staff and physician. All members of the team are in agreement. 9:20:37 Right groin site verified by team. 9::43 Fire Safety Assessment: A--An alcohol-based skin anteseptic being used preoperatively., C--Open oxygen or nitrous oxide is being used., D--An ESU, laser, or fiber-optic light is being used. 9:20:47 Physical assessment completed. ASA score P 2 - A patient with mild systemic disease as per Jimmy Maritn MD. 9:20:50 Sedation plan: IV Moderate Sedation Medication:Versed, Fentanyl 9::03 Versed 2 mg I.V. was administered by Farheen Fournier RN; for sedation; 9::09 Fentanyl 50 mcg I.V. was administered by Farheen Fournier RN; for sedation; 9::41 Procedure started. 9::43 Local anesthetic to right femoral artery with Lidocaine 2% by Jimmy Martin MD.INITIAL ACCESS ONLY 9:23:02 A 5 Fr sheath was inserted into the Right Femoral artery 9:23:26 A MULTIPACK Pigtail 5 Fr catheter was advanced over the wire and used for Procedure. 9::41 LV gram done using TONY 9::43 Injector settings: Ml/sec: 10, Volume: 20, 9::50 EF : 60 % 9:24:51 LV hemodynamics recorded. 9::53 Catheter exchanged over wire. 9::58 A MULTIPACK JL 4.0 5Fr catheter was advanced over the wire and used for Procedure. 9:26:14 LCA angiography performed. 9::35 Versed 2 mg I.V. was administered by Farheen Fournier RN; for sedation; 9::39 Fentanyl 50 mcg I.V. was administered by Farheen Fournier RN; for sedation; 9::46 Catheter exchanged over wire. 9::51 A MULTIPACK 3DRC 5Fr catheter was advanced over the wire and used for Procedure. 9:27:26 LAWSON to LAD angiography performed. 9:28:07 RCA angiography performed. 9:28:16 Catheter exchanged over wire. 9:28:23 A DIAGNOSTIC AR2 MOD 5 Fr catheter ([id number]) was advanced over the wire and used for Procedure. 9:29:21 SVG to Circ angiography performed. 9:29:26 SVG to RCA angiography performed. 9:30:14 Catheter removed. 9:30:27 CHOICE PT Extra Support 182cm wire ([id number]) opened to sterile field. 9:30:28 INFLATOR Merit BasixCompak (ZO6233) opened to sterile field. 9:30:28 SHEATH 6FR Covina (QJE144) opened to sterile field. 9:30:36 GUIDE 6FR XBC 3 ([id number]) opened to sterile field. 9:31:38 Heparin Bolus 4000 units I.V. was administered by Farheen Fournier RN; for anticoagulation; verified with Dr. Martin 9:32:02 Sheath upsized to a 6 Fr Short. 9:32:11 6 Fr XBC 3 guide catheter was inserted over the wire 9:32:45 Guide Catheter removed. unable to cannulate vessel. 9:32:52 GUIDE 6FR EBU 3.0 catheter ([id number]) opened to sterile field. 9:33:47 Integrilin (Bolus 2mg/ml) 6.2 ml I.V. was administered by Farheen Fournier RN; for anticoagulation; wasted 3.8mL 9:34:04 Plavix 600 mg P.O. was administered by Farheen Fournier RN; for antiplatelet therapy; 9:34:13 6 Fr EBU 3.0 guide catheter was inserted over the wire 9:34:21 CHOICE PT ES wire advanced. 9:35:06 Wire advanced across lesion. 9:38:29 Place stent Inflation Number: 1 A INTEGRITY RX 2.25 x 22 stent ([id number]) was prepped and advanced across the Ramus. The stent was deployed at 13 [place] for 0:10 (min:sec). 9:38:31 Stent catheter was removed intact over wire. 9:38:32 Wire removed. 9:38:32 Guide catheter removed. 9:38:41 EXOSEAL 6Fr (EX600) opened to sterile field. 9:38:50 Sheath removed intact; hemostasis achieved with Exoseal to the Right Femoral artery. 9:38:52 Procedure ended.(Physican Out) 9:40:47 Fluoroscopy time 07.60 minutes. 9:40:51 Fluoroscopy dose: 1134 mGy 9:40:51 Flurop Dose total: 1134 9:40:56 Contrast amount:Isovue 300 125ml. 9:40:58 Sharps counted by scrub and verified by R.N. 9:41:24 Insertion/operative site no bleeding no hematoma. 9:41:27 Post-op/insertion site Right Femoral artery dressed using a 4 x 4 and Tegaderm. 9:41:31 Post right femoral artery:stable, soft, clean and dry 9:41:32 Post Procedure Pulses reassessed and unchanged 9:41:34 Post-procedure physical assessment completed. ASA score P 2 - A patient with mild systemic disease as per Jimmy Martin MD. 9:41:37 Post procedure rhythm: unchanged. 9:41:41 Estimated blood loss: 10 ml 9:41:42 Post procedure instruction explained to patient.Patient verbalizes understanding. 9:41:42 Patient needs reinforcement of post procedure teaching. 9:42:01 Procedure type changed to Cath procedure, Diagnostic procedure, LHC, LHC w/Coronaries w/Grafts, Sedation Charges, Moderate Sedation up to 15 minutes, PCI procedure, Coronary Stent, Coronary Stent Initial 9:42:55 Procedure and supply charges have been captured, reviewed, submitted and are correct. 9:42:57 Procedure Complication : No complications 9:43:02 Vital chart was stopped 9:43:03 See physician's report for complete and final results. 9:43:04 Report given to Pre/Post Procedure Room. 9:43:06 Patient transfered to Pre/Post Procedure Room with Stretcher. 9:43:08 Procedure ended. 9:43:08 Full Disclosure recording stopped 9:43:11 End room use (Document Last) Intervention Summary Intervention Notes Time ActionType Lesion and Equipment Action# Pressure Duration Attributes Used 9:38:29 Place stent Ramus INTEGRITY RX 1 13 00:10 2.25 x 22 stent ([id number]) Device Usage Item Name Manufacture Quantity Catalog Number Hospital Part Current Mini mal Lot# / Charge Number Stock Stock Serial# Code ACIST Acist 1 51902 398929 108895 278488 20 Syringe Medical (73168) Systems Inc Bag Decanter Microtek 1 239882 43658 497209 5 () Medical Inc. Medline Cath Medline 1 [id number] 388884 51211 110250 5 Pack ([id number]) ACIST Hand Acist 1 42140 440952 673374 757339 5 Control Medical (45538) Systems Inc ACIST Acist 1 65286 411056 455220 674344 5 [facility] Medical (25657) Systems Inc Tegaderm 4 x 3M 1 1626W 228070 794181 040800 5 4 (1626W) SHEATH 5FR Terumo 1 KOG549 487305 549100 058399 5 Covina (CSO197) DIAGNOSTIC Cardinal 1 JV3039 078646 90916 646279 30 Multipack Health 5Fr catheter set (KS1860) DIAGNOSTIC St Beto 1 029141 912030 410876 170190 30 WIRE .035 260cm J wire (074216) MULTIPACK Cardinal 1 361459 5 Pigtail 5 Fr Health catheter MULTIPACK JL Cardinal 1 681955 5 4.0 5Fr Health catheter MULTIPACK Cardinal 1 534864 5 3DRC 5Fr Health catheter DIAGNOSTIC Cardinal 1 [id number] 061590 381436 885103 20 AR2 MOD 5 Fr Health catheter (338202D) CHOICE PT Rogers 1 [id number] 224727 307460 312355 5 Extra Scientific Support 182cm wire ([id number]) INFLATOR Merit 1 JS6302 818484 050948 590795 15 [facility] Medical BasixCompak (II1178) SHEATH 6FR Terumo 1 XDV547 795253 023012 814691 40 Covina (VYS919) GUIDE 6FR Cardinal 1 08200547 895882 91833 059888 5 XBC 3 Health (55662767) GUIDE 6FR Medtronic 1 [id number] 298860 93189 630197 0 EBU 3.0 catheter ([id number]) INTEGRITY RX Medtronic 1 [id number] 229109 423173 771540 5 [id number] 2.25 x 22 stent ([id number]) EXOSEAL 6Fr Cardinal 1 EX600 313571 053057 401082 10 (EX600) Health Signature Audit [place] Stage Time Signature Unsigned Intra-Procedure 09/03/2018 Ambrose Choi 9:43:25 AM RT(R) Signatures Monitor : Ambrose Choi RT Signature : Date : Time : [facility] [address] [place] [address]
[~2018-09-03 06:59] MED LIST changes: +METOPROLOL TART50 MG PO
[2018-09-03 07:52] VITALS: BP 105/63; Ht 170.2 cm; Wt 69.5 kg
[2018-09-03 08:07] LABS: BASOPHILS 0.7 % (0-2); EOSINOPHILS 3.1 % (0-7); HEMATOCRIT 44.4 % (42.0-54.0); HEMOGLOBIN 15.4 g/dL (13.5-17.5); IMMATURE GRANULOCYTES 0.4 % (0-5); MCH 35.4 pg (26.0-34.0); MCHC 34.7 g/dL (31.0-37.0); MCV 102.1 fL (80.0-100.0); MEAN PLATELET VOLUME 10.3 fL (7.4-10.4); MONOCYTES 9.4 % (2-11); NEUTROPHILS 63.4 % (40-80); PLATELET COUNT 127 10x3/uL (130-400); RBC 4.35 10x6/uL (4.20-6.10); RDW 14.8 % (11.5-14.5); WBC 9.2 10x3/uL (4.8-10.8)
[2018-09-03 08:16] LABS: CALC OSMOLALITY 279 mosm/kg (275-300); CALCIUM 8.2 mg/dL (8.5-10.1); CARBON DIOXIDE 25.4 mmol/L (21.0-32.0); CHLORIDE - SERUM 105 mmol/L (98-107); GLUCOSE 103 mg/dL (74-106); POTASSIUM - SERUM 3.8 mmol/L (3.5-5.1); SODIUM 140 mmol/L (136-145); UREA NITROGEN 14 mg/dL (7-18); eGFR NON AFRICAN AMERICAN 76 mL/min (90-120)
--- NOTE | 2018-09-03 10:08 | NUR ---
RECEIVED PT FROM LINE ANALYST, PT IS VERY DROWSY. DENIES ANY C/O. RESP WITH EASE ON O2 AT 2LPM VIA NC, PT HAS FREQUENT DRY COUGH. SINUS WITH FREQUENT PVC'S, RATE IS 78, BP IS 139/79. FEMSTOP IN PLACE TO CATH SITE, PRESSURE AT 105. PEDAL PULSES PALPABLE. HOB IS FLAT, CALL LIGHT IN REACH, NO FAMILY AT BEDSIDE.
[2018-09-03] MEDS ORDERED: PLAVIX75 MG PO (10:15)
--- NOTE | 2018-09-03 10:20 | NUR ---
PT SLEEPING, RESP WTIH EASE ON O2 AT 2LPM VIA NC. FEMSTOP CDI TO RIGHT GROIN, PEDAL PULSES PALPABLE. NSR WITH FREQUENT PVC'S, SAT IS 98% ON O2 AT 2LPM VIA NC. HOB IS FLAT, CALL LIGHT IN REACH.
--- NOTE | 2018-09-03 10:50 | NUR ---
PT ALERT, DENIES ANY C/O. FEMSTOP INTACT TO RIGHT GROIN, NO BLEEDING OR HEMATOMA NOTED. PEDAL PULSES PALPABLE. HOB IS FLAT. PT JOSEPH SPRITE AND APPLESAUCE WITH NO C/O NAUSEA.
--- NOTE | 2018-09-03 11:29 | NUR ---
PT SLEEPING, RESP WITH EASE ON O2 AT 2LPM VIA NC. FEMSTOP CDI TO RIGHT GROIN, PEDAL PULSES PALPABLE. HOB IS FLAT, CALL LIGHT IN REACH. SINUS RHYTHM WITH PVC'S, BP IS 138/57.
--- NOTE | 2018-09-03 11:45 | NUR ---
FEMSTOP PRESSURE WEANED BY 20 MM HG NO BLEEDING OR HEMATOMA NOTED. PULSES PALPABLE, PT IS ALERT AND DENIES ANY C/O.
--- NOTE | 2018-09-03 12:03 | NUR ---
FEMSTOP PRESSURE DECREASED BY 20 MM HG, GROIN IS STABLE WITH NO BLEEDING OR HEMATOMA NOTED. PEDAL PULSES PALPABLE. VSS. PT IS ALERT AND DENIES ANY C/O.
--- NOTE | 2018-09-03 12:16 | NUR ---
FEMSTOP PRESSURE WEANED COMPLETELY. NO BLEEDING OR HEMATOMA NOTED. PEDAL PULSES PALPABLE. HOB IS FLAT, VSS, JOSEPH PO FLUIDS WITH NO C/O NAUSEA.
--- NOTE | 2018-09-03 12:32 | NUR ---
FEMSTOP IS OFF, DRESSING IS CDI, AREA IS SOFT AND NONTENDER. HOB IS FLAT, CALL LIGHT IN REACH. PEDAL PULSES PALPABLE. VSS, PT IS ALERT AND DENIES ANY C/O.
--- NOTE | 2018-09-03 13:05 | NUR ---
DRESSING CDI TO RIGHT GROIN, AREA IS SOFT AND NONTENDER. PEDAL PULSES PALPABLE. NSR WITH OCCASIONAL PVC'S, PT DENIES ANY C/O CHEST PAIN. VSS, SON AT BEDSIDE. HOB ELEVATED AND SANDWICH SERVED.
--- NOTE | 2018-09-03 13:20 | NUR ---
HOB FULLY ELEVATED. DRESSING CDI TO RIGHT GROIN, AREA IS SOFT AND NONTENDER. PEDAL PULSES PALPABLE. VSS, PT IS ALERT AND DENIES ANY C/O. DC INSTRUCTIONS REVIEWED [facility] PT AND SON WHO VERBALIZE UNDERSTANDING. [facility] CALLED TO [facility] [address] PER PT REQUEST.
--- NOTE | 2018-09-03 13:55 | NUR ---
1340 IV DC'D WITH CATH INTACT. ASSISTED PT WITH DRESSING FOR DC TO HOME. DRESSING REMAINS CDI TO RIGHT GROIN, AREA SOFT AND NONTENDER. PEDAL PULSES PALPABLE. PT AND SON VERBALIZE UNDERSTANDING TO SPECIALIST FIELD ENGINEER [facility] AT [facility] [address] AND TO START THIS MEDICATION TOMORROW. 1350 PT ALERT AND DENIES ANY C/O. PT ESCORTED TO PRIVATE AUTO VIA WC BY NURSE WITH SON DRIVING HIM HOME.
--- NOTE | 2018-09-03 15:09 | OP ---
PATIENT NAME: GWEN CRISTINA MEDICAL RECORD: [id number] :35 LOCATION:D.CAT ADMISSION DATE: SURGEON: LOYDA BOYER MD DATE OF OPERATION: 09/03/2018 PROCEDURES: 1. PTCA stent ramus intermedius. 2. Left heart catheterization. 3. Selective coronary angiography. 4. Vein graft angiography. 5. LAWSON angiography. 6. Left ventriculogram. INDICATION: Angina and coronary artery disease. PROCEDURE IN DETAIL: After informed consent was obtained and after detailed description of risks, benefits as well as alternative therapies, the patient elected to proceed with angiogram and angioplasty. The right femoral area was prepped and draped in normal sterile fashion. Right femoral artery was cannulated via modified Seldinger technique with placement of 6-Indonesian sheath. All catheters exchanged through this sheath. FINDINGS: The left ventriculogram was performed in standard 30-degree TONY view, reveals good cardiac wall motion throughout all segments. Overall ejection fraction estimated 60%. SELECTIVE CORONARY ANGIOGRAPHY: 1. Left main has no significant angiographic disease. 2. Left anterior descending is totally occluded. 3. LAWSON to the LAD is widely patent. Distal LAD is diffusely diseased, but widely patent. 4. Left circumflex is totally occluded. 5. Vein graft to the circumflex is widely patent. 6. Ramus intermedius that is nongrafted has a 75+ percent stenosis in the mid vessel to a relatively large vessel. 7. The right coronary artery is totally occluded. 8. Vein graft to the right coronary artery is widely patent. Distal right coronary artery is diffusely diseased, but widely patent. PTCA STENT OF THE RAMUS INTERMEDIUS: The stent used was a 2.25 x 22 mm Integrity. Result was 0% residual stenosis. OVERALL IMPRESSION: Successful percutaneous transluminal coronary angioplasty stent of the ramus intermedius that is nongrafted going from 75% initial stenosis to 0% residual. TRANSINT:[id number] Voice Confirmation ID: [id number] DOCUMENT ID: [id number] OPERATIVE REPORT [id number] JONNIEGWEN LOYDA LAN MD at 1509 CC: [id number] DICTATION DATE: 09/03/18 0944 PLAN REP: 09/03/18 1211 DEP CLI 09/03/18 [facility] [address] [place] [address]
== END 2018-09-03 13:50 | disposition home or self-care (01) ==
LOC: D.CATH 06:59
PROVIDERS: Internal Medicine Interventional Cardiology
DX: I25.119 Atherosclerotic heart disease of native coronary artery with unspecified angina pectoris (principal); Z01.812 Encounter for preprocedural laboratory examination

== ENCOUNTER → 2019-01-05 10:44 | Outpatient (CLI) | payer OTHER ==
[2018-09-03 07:52] VITALS: BMI 24.0
[~2019-01-05 10:44] MED LIST changes: +PLAVIX75 MG PO
[2019-01-05 12:08] LABS: BASOPHILS 0.3 % (0-2); EOSINOPHILS 2.7 % (0-7); HEMATOCRIT 38.6 % (42.0-54.0); HEMOGLOBIN 13.4 g/dL (13.5-17.5); IMMATURE GRANULOCYTES 0.5 % (0-5); LYMPHOCYTES 15.7 % (15-50); MCH 34.2 pg (26.0-34.0); MCHC 34.7 g/dL (31.0-37.0); MCV 98.5 fL (80.0-100.0); MEAN PLATELET VOLUME 8.9 fL (7.4-10.4); MONOCYTES 8.8 % (2-11); PLATELET COUNT 139 10x3/uL (130-400); RBC 3.92 10x6/uL (4.20-6.10); RDW 14.8 % (11.5-14.5); WBC 5.9 10x3/uL (4.8-10.8)
[2019-01-05 12:25] LABS: ALBUMIN 2.3 g/dL (3.4-5.0); ANION GAP 12.2 mmol/L (8-16); BILIRUBIN - DIRECT 0.43 mg/dL (0.00-0.30); BILIRUBIN - INDIRECT 0.94 mg/dL (0.00-1.00); BILIRUBIN - TOTAL 1.37 mg/dL (0.2-1.3); CALCIUM 8.4 mg/dL (8.5-10.1); CARBON DIOXIDE 25.5 mmol/L (21.0-32.0); CREATININE - SERUM 1.1 mg/dL (0.6-1.3); POTASSIUM - SERUM 3.7 mmol/L (3.5-5.1); PROTEIN - SERUM 8.3 g/dL (6.4-8.2)
[2019-01-05 12:40] LABS: INR 1.49 (0.85-1.17); PROTIME 17.5 SECONDS (11.6-15.0)
== END | disposition home or self-care (01) ==
LOC: D.US 01-04 11:00 → D.LAB 01-04 11:30 → D.US 10:44
PROVIDERS: ATTEND Internal Medicine Gastroenterology
DX: K74.60 Unspecified cirrhosis of liver (principal); R18.8 Other ascites

== ENCOUNTER 2019-01-06 12:38 | Inpatient (IN) | payer OTHER ==
[~2019-01-06] VITALS: Ht 170.2 cm; Wt 68.0 kg
[2019-01-06 13:00] VITALS: BP 118/70; BMI 23.5
[2019-01-06 13:35] LABS: BASOPHILS 0.5 % (0-2); EOSINOPHILS 2.7 % (0-7); HEMATOCRIT 37.7 % (42.0-54.0); HEMOGLOBIN 13.4 g/dL (13.5-17.5); IMMATURE GRANULOCYTES 0.5 % (0-5); LYMPHOCYTES 15.3 % (15-50); MCH 34.7 pg (26.0-34.0); MCHC 35.5 g/dL (31.0-37.0); MCV 97.7 fL (80.0-100.0); MEAN PLATELET VOLUME 9.4 fL (7.4-10.4); MONOCYTES 12.9 % (2-11); NEUTROPHILS 68.1 % (40-80); PLATELET COUNT 149 10x3/uL (130-400); RBC 3.86 10x6/uL (4.20-6.10); RDW 14.7 % (11.5-14.5)
[2019-01-06 13:37] LABS: WBC 7.9 10x3/uL (4.8-10.8)
[2019-01-06 13:47] LABS: ALBUMIN 2.5 g/dL (3.4-5.0); ANION GAP 13.5 mmol/L (8-16); BILIRUBIN - TOTAL 1.35 mg/dL (0.2-1.3); CALCIUM 8.6 mg/dL (8.5-10.1); CARBON DIOXIDE 24.9 mmol/L (21.0-32.0); CREATININE - SERUM 1.2 mg/dL (0.6-1.3); POTASSIUM - SERUM 3.4 mmol/L (3.5-5.1); PROTEIN - SERUM 8.9 g/dL (6.4-8.2)
[2019-01-06 18:07] VITALS: BP 108/68
--- NOTE | 2019-01-06 19:45 | NUR ---
PT RESTING IN BED. NO S/S OF ACUTE DISTRESS. ER, RN SITED IV TO R WRIST.
--- NOTE | 2019-01-06 19:53 | NUR ---
BASILIO POPN ASSISTED WITH PT CARE TODAY. PT DID NOT WANT ME IN THERE ROOM. ASSISTED THE [employer] SPECIAL EDUCATION TEACHER WITH CALLING MD FOR NEW ORDERS AND REPORTING PT CHANGE. NO S/S OF ACUTE DISTRESS.
[2019-01-06 20:00] VITALS: BP 124/80
--- NOTE | 2019-01-06 20:40 | NUR ---
LYING QUEITLY WITH NO DISTRESS NOTED. RESP EVEN AND UNALBORED. NO COMPALITNS VOICED AT THIS TIME.IV TO RFA WITHOUT REDNESS OR EDEMA NOTED.CL IN REACH
[2019-01-07] VITALS: BP 123/70
[2019-01-07 04:00] VITALS: BP 120/70
[2019-01-07 04:08] LABS: BASOPHILS 0.2 % (0-2); EOSINOPHILS 3.1 % (0-7); HEMATOCRIT 33.3 % (42.0-54.0); HEMOGLOBIN 11.6 g/dL (13.5-17.5); IMMATURE GRANULOCYTES 0.3 % (0-5); LYMPHOCYTES 14.3 % (15-50); MCH 33.8 pg (26.0-34.0); MCHC 34.8 g/dL (31.0-37.0); MCV 97.1 fL (80.0-100.0); MEAN PLATELET VOLUME 9.4 fL (7.4-10.4); MONOCYTES 12.9 % (2-11); NEUTROPHILS 69.2 % (40-80); PLATELET COUNT 124 10x3/uL (130-400); RBC 3.43 10x6/uL (4.20-6.10); RDW 14.6 % (11.5-14.5)
[2019-01-07 04:16] LABS: WBC 5.8 10x3/uL (4.8-10.8)
--- NOTE | 2019-01-07 04:17 | NUR ---
I have reviewed this patient and I concur with the Shift Assessment completed by the Licensed Practical Nurse today this shift.
[2019-01-07 04:24] LABS: % SATURATION 40 % (15-55); IRON 57 ug/dl (35-150); TOTAL IRON BIND CAPACITY 142 ug/dl (260-445); UNSAT IRON BIND CAPACITY 85 ug/dl (150-375)
[2019-01-07 04:25] LABS: INR 1.5 (0.85-1.17); PROTIME 17.5 SECONDS (11.6-15.0)
[2019-01-07 04:36] LABS: ALKALINE PHOSPHATASE 77 U/L (46-116); CALC OSMOLALITY 273 mosm/kg (275-300); CALCIUM 8.4 mg/dL (8.5-10.1); CHLORIDE - SERUM 102 mmol/L (98-107); FERRITIN 280 ng/mL (3-244); GLUCOSE 115 mg/dL (74-106); MAGNESIUM - SERUM 1.8 mg/dL (1.8-2.4); PHOSPHOROUS 2.5 mg/dL (2.5-4.9); POTASSIUM - SERUM 3.3 mmol/L (3.5-5.1); PROTEIN - SERUM 7.4 g/dL (6.4-8.2); SODIUM 136 mmol/L (136-145); THYROID STIMULATING HORMONE 5.73 uIU/mL (0.36-3.74); UREA NITROGEN 15 mg/dL (7-18); eGFR NON AFRICAN AMERICAN 76 mL/min (90-120)
[2019-01-07 04:50] LABS: ALT (SGPT) 16 U/L (10-68)
[2019-01-07 09:39] VITALS: BP 121/68
[2019-01-07 10:28] LABS: PLT FUNCT.(P2Y12) PLAVIX 77 PRU (194-418)
[2019-01-07 13:32] VITALS: BP 123/70
[2019-01-07 14:05] VITALS: Ht 170.2 cm; Wt 68.0 kg
--- NOTE | 2019-01-07 16:46 | NUR ---
I have reviewed this patient and I concur with the Shift Assessment completed by the Licensed Practical Nurse today this shift.
[2019-01-07 17:07] VITALS: BP 117/69
[2019-01-07 19:58] VITALS: BP 109/67
--- NOTE | 2019-01-07 21:00 | NUR ---
REPORTS DISCOMFORT TO ABDOMEN. ABDOMEN FIRM AND DISTENDING. NON TENDER TO PALPATION. DENIES NEEDS FOR PAIN MEDICATION. WILL CONTINUE TO MONITOR CLOSELY.
--- NOTE | 2019-01-08 02:46 | NUR ---
I have reviewed this patient and I concur with the Shift Assessment completed by the Licensed Practical Nurse today this shift.
[2019-01-08 03:43] LABS: APPEARANCE CLEAR (CLEAR); BILIRUBIN NEGATIVE (NEGATIVE); COLOR STRAW (YELLOW); GLUCOSE NEGATIVE (NEGATIVE); KETONE NEGATIVE (NEGATIVE); NITRITE NEGATIVE (NEGATIVE); PROTEIN NEGATIVE (NEGATIVE); SPECIFIC GRAVITY 1.005 (1.005-1.020); UROBILINOGEN NORMAL (NORMAL)
[2019-01-08 04:00] VITALS: BP 118/64
[2019-01-08 06:12] LABS: FOLATE (FOLIC ACID) - SERUM 5.2 ng/mL (>3.0)
[2019-01-08 06:56] LABS: BASOPHILS 0.4 % (0-2); HEMATOCRIT 34.2 % (42.0-54.0); IMMATURE GRANULOCYTES 0.4 % (0-5); LYMPHOCYTES 14.9 % (15-50); MCH 34.2 pg (26.0-34.0); MCHC 35.1 g/dL (31.0-37.0); MCV 97.4 fL (80.0-100.0); MEAN PLATELET VOLUME 9.7 fL (7.4-10.4); MONOCYTES 15.6 % (2-11); NEUTROPHILS 64.7 % (40-80); PLATELET COUNT 136 10x3/uL (130-400); RBC 3.51 10x6/uL (4.20-6.10); RDW 14.7 % (11.5-14.5); WBC 5.5 10x3/uL (4.8-10.8)
[2019-01-08 07:24] LABS: ANION GAP 10.2 mmol/L (8-16); BILIRUBIN - TOTAL 1.15 mg/dL (0.2-1.3); CALCIUM 7.9 mg/dL (8.5-10.1); CARBON DIOXIDE 27.3 mmol/L (21.0-32.0); CREATININE - SERUM 1.1 mg/dL (0.6-1.3); MAGNESIUM - SERUM 1.5 mg/dL (1.8-2.4); PHOSPHOROUS 2.3 mg/dL (2.5-4.9); POTASSIUM - SERUM 3.5 mmol/L (3.5-5.1); PROTEIN - SERUM 7.4 g/dL (6.4-8.2)
--- NOTE | 2019-01-08 08:00 | NUR ---
LYING IN BED,WITHOUT DISTRESS.CALL LIGHT IN REACH
[2019-01-08 08:30] VITALS: BP 124/67
[2019-01-08 12:16] VITALS: BP 122/76
[2019-01-08 16:55] VITALS: BP 127/74
[2019-01-08 20:00] VITALS: BP 132/70
--- NOTE | 2019-01-08 20:00 | NUR ---
ALERT RESTING IN BED DENIES NEEDS AT THIS TIME, SEE SHIFT ASSESSMENT, CALL LIGHT IN REACH
[2019-01-09] VITALS: BP 129/63
[2019-01-09 04:00] VITALS: BP 138/60
[2019-01-09 06:50] LABS: BASOPHILS 0.2 % (0-2); EOSINOPHILS 3.8 % (0-7); HEMATOCRIT 35.2 % (42.0-54.0); HEMOGLOBIN 12.3 g/dL (13.5-17.5); IMMATURE GRANULOCYTES 0.5 % (0-5); MCH 34.4 pg (26.0-34.0); MCHC 34.9 g/dL (31.0-37.0); MCV 98.3 fL (80.0-100.0); MEAN PLATELET VOLUME 9.4 fL (7.4-10.4); MONOCYTES 14.1 % (2-11); NEUTROPHILS 64.4 % (40-80); PLATELET COUNT 141 10x3/uL (130-400); RBC 3.58 10x6/uL (4.20-6.10); RDW 14.9 % (11.5-14.5); WBC 5.5 10x3/uL (4.8-10.8)
[2019-01-09 08:34] LABS: ALKALINE PHOSPHATASE 75 U/L (46-116); ALT (SGPT) 19 U/L (10-68); BILIRUBIN - TOTAL 1.09 mg/dL (0.2-1.3); CALC OSMOLALITY 270 mosm/kg (275-300); CARBON DIOXIDE 26.1 mmol/L (21.0-32.0); CHLORIDE - SERUM 101 mmol/L (98-107); GLUCOSE 82 mg/dL (74-106); PHOSPHOROUS 2.5 mg/dL (2.5-4.9); POTASSIUM - SERUM 3.5 mmol/L (3.5-5.1); PROTEIN - SERUM 7.5 g/dL (6.4-8.2); SODIUM 136 mmol/L (136-145); UREA NITROGEN 13 mg/dL (7-18); eGFR NON AFRICAN AMERICAN 76 mL/min (90-120)
[2019-01-09 08:39] LABS: MAGNESIUM - SERUM 1.9 mg/dL (1.8-2.4)
--- NOTE | 2019-01-09 08:44 | NUR ---
PT ALERT X 4. BREATH SOUNDS CLEAR BILAT. TELEMETRY IN PLACE. ABDOMEN DISTENDED AND FIRM, PT REPORTING SLIGHT TENDERNESS. IV TO RIGHT FOREARM, PATENT, DRESSING CDI. PT REPORTING NO REAL PAIN. BED LOW, CALL LIGHT IN REACH. NO OTHER NEEDS AT THIS TIME. CONSENTS SIGNED.
[2019-01-09 09:25] VITALS: BP 125/68
[2019-01-09 13:00] VITALS: BP 124/68
[2019-01-09 18:20] VITALS: BP 118/74
[2019-01-09 20:00] VITALS: BP 127/69
--- NOTE | 2019-01-09 22:00 | NUR ---
ALERT SITTING UP IN CHAIR, DENIES NEEDS AT THIS TIME CALL ETHAN GUERRA
[2019-01-10] VITALS (13 sets, daily range): BP systolic 97–121; BP diastolic 47–64
--- NOTE | 2019-01-10 07:35 | NUR ---
PT RESTING IN BED, EYES OPEN. NO C/O PAIN. NO S/S OF ACUTE DISTRESS NOTED. ALERT AND ORIENTED. ABDOMEN DISTENDED. PT SCHEDULED FOR PARACENTESIS TODAY. LOVENOX ON HOLD. ON ELECTROLYTE PROTOCOL. IV TO RIGHT FOREARM, NS INFUSING @ 30ML/HR. SITE PATENT WITHOUT REDNESS OR SWELLING. PT DENIES ANYTHING FURTHER AT THIS TIME. CALL LIGHT IN REACH. WILL CONTINUE TO MONITOR.
[2019-01-10 08:04] LABS: BASOPHILS 0.3 % (0-2); EOSINOPHILS 3.9 % (0-7); HEMATOCRIT 34.9 % (42.0-54.0); HEMOGLOBIN 12.3 g/dL (13.5-17.5); IMMATURE GRANULOCYTES 0.5 % (0-5); LYMPHOCYTES 16.5 % (15-50); MCH 34.4 pg (26.0-34.0); MCHC 35.2 g/dL (31.0-37.0); MCV 97.5 fL (80.0-100.0); MEAN PLATELET VOLUME 9.2 fL (7.4-10.4); MONOCYTES 14.4 % (2-11); NEUTROPHILS 64.4 % (40-80); PLATELET COUNT 139 10x3/uL (130-400); RBC 3.58 10x6/uL (4.20-6.10); RDW 14.8 % (11.5-14.5); WBC 6.4 10x3/uL (4.8-10.8)
[2019-01-10 08:14] LABS: APTT 35.4 SECONDS (22.8-39.4); INR 1.47 (0.85-1.17); PROTIME 17.2 SECONDS (11.6-15.0)
[2019-01-10 08:19] LABS: ALBUMIN 2.1 g/dL (3.4-5.0); BILIRUBIN - TOTAL 1.12 mg/dL (0.2-1.3); CALCIUM 8.2 mg/dL (8.5-10.1); CARBON DIOXIDE 27.7 mmol/L (21.0-32.0); CREATININE - SERUM 1.1 mg/dL (0.6-1.3); MAGNESIUM - SERUM 1.7 mg/dL (1.8-2.4); PHOSPHOROUS 2.7 mg/dL (2.5-4.9); POTASSIUM - SERUM 3.7 mmol/L (3.5-5.1); PROTEIN - SERUM 7.6 g/dL (6.4-8.2)
--- NOTE | 2019-01-10 09:55 | EC ---
PATIENT:GWEN CRISTINA DATE OF SERVICE: 01/06/19 SEX: M MEDICAL RECORD: [id number] DATE OF : 35 LOCATION:D.MS Dai222 AGE OF PATIENT: 83 ADMISSION DATE: 01/06/19 REFERRING PHYSICIAN: INTERPRETING PHYSICIAN: ERON JEROME MD ECHOCARDIOGRAM REPORT ECHO CHARGES 4 ECHO COMPLETE Date: 01/07/19 CLINICAL DIAGNOSIS: EDEMA - H/O CAD/CABG ECHOCARDIOGRAPHIC MEASUREMENTS (adult normal given) AC root (d.<3.7cm) 3.3 cm LV Septum d (<1.2 cm> 0.9 cm Valve Excursion 1.1 cm LV Septum (systole) 1.3 cm Left Atria (s.<4.0cm> 4.6 cm LVPW d(<1.2cm) 0.9 cm RV (d.<2.3cm) 2.3 cm LVPW (sytole) 1.6 cm LV diastole(<5.6CM) 5.0 cm MV E-F(>70mm/sec) cm LV systole 2.9 cm LVOT Diameter 1.6 cm MV exc.(>10mm) cm Est.ejection fraction (50-75%) % DOPPLER: LVIT cm/sec A 138 cm/sec E 114 cm/sec LA cm/sec RVSP 35.0 mmHg LVOT 100 cm/sec AOP1/2T m/s Asc. Ao 137 cm/sec RVOT 53.0 cm/sec RA cm/sec PA 83.0 cm/sec AV Gradient Peak 7.5 mmHg AV Mean 3.5 mmHg AV Area 1.9 cm MV Gradient Peak 9.9 mmHg MV Mean 3.7 mmHg MV Area cm COMMENTS: Manager Orange: 1 KAYCEE WANGOE Electroencephalograph Technologist: 2 Dr. Medeiros TAPE# PACS Pericardial Effusion N DATE OF SERVICE: Adequate 2D, color flow, spectral Doppler, and M-Mode No LVH. LV internal dimensions are normal. Wall motion is normal. EF is greater than or equal to 55%. Aortic valve sclerosis is without stenosis by Doppler interrogation. Left atrium is dilated at 4.6 cm. Mitral valve is thickened with mitral annular calcification with only mild MR. Right-sided chambers are grossly normal. Mild TR. ECHOCARDIOGRAM REPORT [id number] GWEN CRISTINA TRANSINT:[id number] Voice Confirmation ID: [id number] DOCUMENT ID: [id number] ERON JEROME MD at 0955 CC: [id number] DICTATION DATE: 01/07/19 1130 GEOSPATIAL EXTRACTOR ANALYSIS: 01/07/19 1338 ADM IN [facility] [address] [place] [address]
--- NOTE | 2019-01-10 10:58 | NUR ---
I have reviewed this patient and I concur with the Shift Assessment completed by the Licensed Practical Nurse today this shift.
--- NOTE | 2019-01-10 14:25 | NUR ---
PT TAKEN TO PROCEDURE VIA BED, ACCOMPANIED BY HOSPITAL STAFF.
[2019-01-10 16:36] LABS: PROTEIN - BODY FLUID 2.7 G/DL
--- NOTE | 2019-01-10 16:56 | MORECARE ---
CASE MANAGEMENT DISCHARGE SUMMARY PATIENT: GWEN SANTIAGO UNIT: [id number] ADM DATE: 01/06/19 AGE: 83 : 35 SEX: M ROOM/BED: D.2228 AUTHOR: YOEL GARCIA PHYSICIAN: REFERRING PHYSICIAN: MYLES WILCOX MD DATE OF SERVICE: 01/10/19 Discharge Plan Patient Name: GWEN SANTIAGO Facility: [facility]:[place] : 1935 Planned Disposition: Long-Term Facility Anticipated Discharge Date: Discharge Date: Expected LOS: Initial Reviewer: [email or web address] Initial Review Date: 01/10/2019 Generated: 01/10/19 5:56 pm DCPIA - Discharge Planning Initial Assessment Updated by [email or web address]: Karo Odonnell on 01/10/19 4:55 pm * Is the patient Alert and Oriented? Yes * PCP Dr. Wilcox * Pharmacy [facility] [address] * Preadmission Environment Home Alone * ADLs Independent * Equipment None * List name and contact numbers for known caregivers / representatives who currently or will assist patient after discharge: Mainor Santiago [facility] - [phone] Fredy Jack [facility] [phone] * Verbal permission to speak to the caregivers and representatives has been obtained from the patient. N/A * Community resources currently utilized None * Additional services required to return to the preadmission environment? Yes * Can the patient safely return to the preadmission environment? Yes * Has this patient been hospitalized within the prior 30 days at any hospital? No Patient Name: GWEN SANTIAGO Page [phone] at 1656 All edits/amendments must be made on the electronic document DICTATION DATE: 01/10/191655 UX LEAD: VILMA 01/10/191655 RPT#: [id number] DC DATE: STATUS: ADM IN [facility] [address] [place] [address] END OF REPORT
--- NOTE | 2019-01-10 17:06 | MORECARE ---
CASE MANAGEMENT DISCHARGE SUMMARY PATIENT: GWEN CRISTINA UNIT: [id number] ADM DATE: 01/06/19 AGE: 83 : 35 SEX: M ROOM/BED: D.2228 AUTHOR: RADHA,DOC PHYSICIAN: REFERRING PHYSICIAN: MYLES WILCOX MD DATE OF SERVICE: 01/10/19 Discharge Plan Patient Name: GWEN CRISTINA Facility: [facility]:[place] : 1935 Planned Disposition: Mcfp Facility Anticipated Discharge Date: Discharge Date: Expected LOS: Initial Reviewer: [id number] Initial Review Date: 01/10/2019 Generated: 01/10/19 6:06 pm Comments DCP- Discharge Planning Updated by [id number]: Karo Odonnell on 01/10/19 4:[address] Patient Name: GWEN CRISTINA Admission Status: Urgent Accout number: [id number] Admission Date: 01-06-2019 : 1935 Admission Diagnosis:OTHER ASCITES Attending: MYLES WILCOX Current LOS: 4 Anticipated DC Date: Planned Disposition: Mcfp Facility Primary Insurance: NOVASYSMCR Discharge Planning Comments: CM met with patient's son today per son's request to discuss discharge planning/needs. His son (Mainor) states that he would like his father to go to an assisted living or a skilled facility prior to returning home. Patient lives alone and he states his father has fallen down at least once that he knows of. I discussed the availability of rehab, SNF, home health, and DME. He states that he and his brother are looking at assisted living in [facility] or [facility]. He states possibly [facility] or [place] in [place]. I provided Mainor with the ENOCH on skilled facilities and explained the insurance aspect. He states that he believes his father also has insurance for assisted living. I told him he would need to pick an assisted living in the area he would like and to tour and speak with the admissions dept there, he voiced understanding. CM will continue to follow and assist with discharge planning/needs. Parts Sales Counterperson: Karo Odonnell DCPIA - Discharge Planning Initial Assessment Updated by [id number]: Karo Odonnell on 01/10/19 4:55 pm * Is the patient Alert and Oriented? Yes * PCP Dr. Wilcox * Pharmacy [facility] on [place] * Preadmission Environment Home Alone * ADLs Independent * Equipment None * List name and contact numbers for known caregivers / representatives who currently or will assist patient after discharge: Mainor cordova - [phone] Fredy cordova - [phone] * Verbal permission to speak to the caregivers and representatives has been obtained from the patient. N/A * Community resources currently utilized None * Additional services required to return to the preadmission environment? Yes * Can the patient safely return to the preadmission environment? Yes * Has this patient been hospitalized within the prior 30 days at any hospital? No Last DP export: 01/10/19 3:56 p Patient Name: GWEN CRISTINA Page [id number] at 1706 All edits/amendments must be made on the electronic document DICTATION DATE: 01/10/191705 FILM CLEANER: VILMA 01/10/191705 RPT#: [id number] DC DATE: STATUS: ADM IN [facility] [address] [place] [address] END OF REPORT
--- NOTE | 2019-01-10 18:50 | NUR ---
PT SITTING UP ON THE SIDE OF THE BED EATING. NO C/O PAIN. NO S/S OF ACUTE DISTRESS NOTED. PT HAD PARACENTESIS TODAY, REMOVED 7000ML. PT DENIES ANYTHING FURTHER. CALL LIGHT IN REACH. WILL CONTINUE TO MONITOR.
[2019-01-10 19:32] LABS: MACROPHAGES BF 29 %; NEUT - BF 8 %
--- NOTE | 2019-01-10 19:36 | NUR ---
B/P 108/54 HR 77 O2 SAT-96& TEMP 97.6 R-17
[2019-01-11] VITALS: BP 102/63
--- NOTE | 2019-01-11 00:25 | NUR ---
RESTING IN BED WITH NO NEEDS NOTED OR STATED iV IN PLACE AND PATEN. CALL LIGHT AND WATER IN REACH.
[2019-01-11 04:00] VITALS: BP 113/66
[2019-01-11 05:27] LABS: BASOPHILS 0.3 % (0-2); EOSINOPHILS 3.5 % (0-7); HEMATOCRIT 33.6 % (42.0-54.0); HEMOGLOBIN 11.8 g/dL (13.5-17.5); IMMATURE GRANULOCYTES 0.3 % (0-5); LYMPHOCYTES 16.7 % (15-50); MCHC 35.1 g/dL (31.0-37.0); MCV 96.8 fL (80.0-100.0); MEAN PLATELET VOLUME 9.4 fL (7.4-10.4); NEUTROPHILS 64.2 % (40-80); PLATELET COUNT 126 10x3/uL (130-400); RBC 3.47 10x6/uL (4.20-6.10); RDW 14.4 % (11.5-14.5); WBC 5.7 10x3/uL (4.8-10.8)
[2019-01-11 05:47] LABS: ALBUMIN 2.4 g/dL (3.4-5.0); BILIRUBIN - TOTAL 1.19 mg/dL (0.2-1.3); CALCIUM 8.1 mg/dL (8.5-10.1); CARBON DIOXIDE 27.6 mmol/L (21.0-32.0); CREATININE - SERUM 1.1 mg/dL (0.6-1.3); PHOSPHOROUS 2.8 mg/dL (2.5-4.9); POTASSIUM - SERUM 3.6 mmol/L (3.5-5.1)
[2019-01-11 08:16] VITALS: BP 115/61
--- NOTE | 2019-01-11 11:39 | MORECARE ---
CASE MANAGEMENT DISCHARGE SUMMARY PATIENT: GWEN CRISTINA UNIT: [id number] ADM DATE: 01/06/19 AGE: 83 : 35 SEX: M ROOM/BED: D.2228 AUTHOR: RADHA,DOC PHYSICIAN: REFERRING PHYSICIAN: MYLES WILCOX MD DATE OF SERVICE: 01/11/19 Discharge Plan Patient Name: GWEN CRISTINA Facility: [facility]:[place] : 1935 Planned Disposition: Penitentiary Facility Anticipated Discharge Date: Discharge Date: Expected LOS: Initial Reviewer: [id number] Initial Review Date: 01/10/2019 Generated: 01/11/19 12:38 pm Comments DCP- Discharge Planning Updated by [id number]: Karo Odonnell on 01/10/19 4:[address] Patient Name: GWEN CRISTINA Admission Status: Urgent Accout number: [id number] Admission Date: 01-06-2019 : 1935 Admission Diagnosis:OTHER ASCITES Attending: MYLES WILCOX Current LOS: 4 Anticipated DC Date: Planned Disposition: Penitentiary Facility Primary Insurance: NOVASYSMCR Discharge Planning Comments: CM met with patient's son today per son's request to discuss discharge planning/needs. His son (Mainor) states that he would like his father to go to an assisted living or a skilled facility prior to returning home. Patient lives alone and he states his father has fallen down at least once that he knows of. I discussed the availability of rehab, SNF, home health, and DME. He states that he and his brother are looking at assisted living in [facility] or [facility]. He states possibly [facility] or [place] in [place]. I provided Mainor with the ENOCH on skilled facilities and explained the insurance aspect. He states that he believes his father also has insurance for assisted living. I told him he would need to pick an assisted living in the area he would like and to tour and speak with the admissions dept there, he voiced understanding. CM will continue to follow and assist with discharge planning/needs. Gas Appliance Adjuster: Karo Odonnell DCPIA - Discharge Planning Initial Assessment Updated by [email or web address]: Karo Odonnell on 01/10/19 4:55 pm * Is the patient Alert and Oriented? Yes * PCP Dr. Wilcox * Pharmacy [facility] on [address] * Preadmission Environment Home Alone * ADLs Independent * Equipment None * List name and contact numbers for known caregivers / representatives who currently or will assist patient after discharge: Mainor cordova - [phone] Fredy cordova - [phone] * Verbal permission to speak to the caregivers and representatives has been obtained from the patient. N/A * Community resources currently utilized None * Additional services required to return to the preadmission environment? Yes * Can the patient safely return to the preadmission environment? Yes * Has this patient been hospitalized within the prior 30 days at any hospital? No External Providers External Provider: [facility] Next Contact Date: Service Request Date: Service Type: Resolution: Reviewer: Comments: [facility] Contact Date: Service Request Date: Service Type: Resolution: Reviewer: Comments: Last DP export: 01/10/19 4:06 p Patient Name: GWEN CRISTINA Page [phone] at 1139 All edits/amendments must be made on the electronic document DICTATION DATE: 01/11/191137 ASSOCIATE PROFESSOR: VILMA 01/11/191137 RPT#: [id number] DC DATE: STATUS: ADM IN [facility] [address] [place] [address] END OF REPORT
--- NOTE | 2019-01-11 12:02 | MORECARE ---
CASE MANAGEMENT DISCHARGE SUMMARY PATIENT: GWEN SANTIAGO UNIT: [id number] ADM DATE: 01/06/19 AGE: 83 : 35 SEX: M ROOM/BED: D.2228 AUTHOR: YOEL GACRIA PHYSICIAN: REFERRING PHYSICIAN: MYLES WILCOX MD DATE OF SERVICE: 01/11/19 Discharge Plan Patient Name: GWEN SANTIAGO Facility: [facility]:[place] : 1935 Planned Disposition: Correction Facility Anticipated Discharge Date: Discharge Date: Expected LOS: Initial Reviewer: [id number] Initial Review Date: 01/10/2019 Generated: 01/11/19 1:02 pm Comments DCP- Discharge Planning Updated by [email or web address]: Karo Belle on 01/11/19 10:[address] Anticipate discharge today. I spoke with the patient and he wants to go home. He agrees to home health and agrees to using a walker. [facility] for [place] and [place] received. I called [facility] and spoke to Fatimah, clinical faxed. I spoke with Su at [facility] for a walker and clinical faxed. His son, Fredy, was on the phone and informed of discharge home. I left a message with Mainor on the phone and informed him of his father's wishes and to return my call if he had any other needs for his father. Patient states his friend, Gregor Garcia and his will come to take him and his vehicle home. CM will continue to follow and assist with discharge planning/needs. DCP- Discharge Planning Updated by [id number]: Karo Belle on 01/10/19 4:[address] Patient Name: GWEN SANTIAGO Admission Status: Urgent Accout number: [id number] Admission Date: 01-06-2019 : 1935 Admission Diagnosis:OTHER ASCITES Attending: MYLES WILCOX Current LOS: 4 Anticipated DC Date: Planned Disposition: [facility] Facility [facility] Discharge Planning Comments: CM met with patient's son today per son's request to discuss discharge planning/needs. His son (Mainor) states that he would like his father to go to an assisted living or a skilled facility prior to returning home. Patient lives alone and he states his father has fallen down at least once that he knows of. I discussed the availability of rehab, SNF, home health, and DME. He states that he and his brother are looking at assisted living in [facility] or [facility]. He states possibly [facility] or [facility] in [place]. I provided Mainor with the ENOCH on skilled facilities and explained the insurance aspect. He states that he believes his father also has insurance for assisted living. I told him he would need to pick an assisted living in the area he would like and to tour and speak with the admissions dept there, he voiced understanding. CM will continue to follow and assist with discharge planning/needs. Home Economist: Karo Odonnell DCPIA - Discharge Planning Initial Assessment Updated by [id number]: Karo Odonnell on 01/10/19 4:55 pm * Is the patient Alert and Oriented? Yes * PCP Dr. Wilcox * Pharmacy [facility] on [address] * Preadmission Environment Home Alone * ADLs Independent * Equipment None * List name and contact numbers for known caregivers / representatives who currently or will assist patient after discharge: Mainor cordova - [phone] Fredy Santiago Ramonita art - [phone] * Verbal permission to speak to the caregivers and representatives has been obtained from the patient. N/A * Community resources currently utilized None * Additional services required to return to the preadmission environment? Yes * Can the patient safely return to the preadmission environment? Yes * Has this patient been hospitalized within the prior 30 days at any hospital? No Coverage Notice Reviewer: [id number] Ramonita Odonnell Notice Issued Date-Time: 01/11/2019 11:47 Notice Type: IM Discharge Notice Notice Delivered To: Patient Relationship to Patient: Self Middleware Systems Architect Name: Delivery Method: HAND - Hand Delivered Shweta Days: Prior Verbal Notification: Recipient Understood Notice: Yes Recipient Signature: Yes Med Rec Note Co-signed by Attending: Coverage Notice Comment: IMM explained, signed, given, copy placed in Mr Reviewer: [id number] Ramonita Odonnell Notice Issued Date-Time: 01/11/2019 11:47 Notice Type: Patient Choice Letter Notice Delivered To: Patient Relationship to Patient: Self Middleware Systems Architect Name: Delivery Method: HAND - Hand Delivered Shweta Days: Prior Verbal Notification: Recipient Understood Notice: Yes Recipient Signature: Yes Med Rec Note Co-signed by Attending: Coverage Notice Comment: E[facility] for [place] and [place] [facility] first/[facility] and [facility] second Last DP export: 01/11/19 10:38 a Patient Name: GWEN SANTIAGO Page [id number] at 1202 All edits/amendments must be made on the electronic document DICTATION DATE: 01/11/191200 CATCHER PLUG: VILMA 01/11/19 120 RPT#: [id number] DC DATE: STATUS: ADM IN [facility] [address] [place] [address] END OF REPORT
[2019-01-11 12:43] VITALS: BP 106/58
--- NOTE | 2019-01-11 12:56 | NUR ---
Rehab Note- Acute Inpatient REhab prescreen order received. The patient is noted too functional to qualify for inpatient acute rehab. Also has [employer] insurance and would require a PreAuth & per Cm note the patient is requesting to discharge home. Thank you for this referral! Carolina Dickson RN CLinical Liaison, [facility] Rehab
--- NOTE | 2019-01-11 13:48 | NUR ---
NUTRITION F/U CHART REVIEWED. DIET ADVANCED TO REG. NOTE POSSIBLE DC TODAY. WILL CONTINUE TO PROVIDE DIET, MONITOR PT PROGRESS. RD FOLLOWING
[2019-01-11] MEDS ORDERED: LASIX20 MG PO (14:13)
--- NOTE | 2019-01-11 15:16 | MORECARE ---
CASE MANAGEMENT DISCHARGE SUMMARY PATIENT: GWEN CRISTINA UNIT: [id number] ADM DATE: 01/06/19 AGE: 83 : 35 SEX: M ROOM/BED: D.2228 AUTHOR: RADHA,DOC PHYSICIAN: REFERRING PHYSICIAN: MYLES WILCOX MD DATE OF SERVICE: 01/11/19 Discharge Plan Patient Name: GWEN CRISTINA Facility: [facility]:[place] : 1935 Planned Disposition: Residential Facility Anticipated Discharge Date: Discharge Date: Expected LOS: Initial Reviewer: [id number] Initial Review Date: 01/10/2019 Generated: 01/11/19 4:16 pm Comments DCP- Discharge Planning Updated by [email or web address]: Karo Odonnell on 01/11/19 2:[address] I spoke with Lyndsay at [place], they will see him . I spoke with Su at [facility], they will deliver walker today prior to discharge. Home today with home health. CM will continue to follow and assist with discharge planning/needs. DCP- Discharge Planning Updated by [id number]: Karo Odonnell on 01/11/19 10:[address] Anticipate discharge today. I spoke with the patient and he wants to go home. He agrees to home health and agrees to using a walker. [facility] for [place] and [facility] received. I called [facility] and spoke to Fatimah, clinical faxed. I spoke with Su at [facility] for a walker and clinical faxed. His son, Fredy, was on the phone and informed of discharge home. I left a message with Mainor on the phone and informed him of his father's wishes and to return my call if he had any other needs for his father. Patient states his friend, Gregor Garcia and his will come to take him and his vehicle home. CM will continue to follow and assist with discharge planning/needs. DCP- Discharge Planning Updated by [id number]: Karo Odonnell on 01/10/19 4:[address] Patient Name: GWEN CRISTINA Admission Status: Urgent Accout number: [id number] Admission Date: 01-06-2019 : 1935 Admission Diagnosis:OTHER ASCITES Attending: MYLES WILCOX Current LOS: 4 Anticipated DC Date: Planned Disposition: Residential Facility [facility] Discharge Planning Comments: CM met with patient's son today per son's request to discuss discharge planning/needs. His son (Mainor) states that he would like his father to go to an assisted living or a skilled facility prior to returning home. Patient lives alone and he states his father has fallen down at least once that he knows of. I discussed the availability of rehab, SNF, home health, and DME. He states that he and his brother are looking at assisted living in [facility] or [facility]. He states possibly [facility] or [place] in [place]. I provided Mainor with the ENOCH on skilled facilities and explained the insurance aspect. He states that he believes his father also has insurance for assisted living. I told him he would need to pick an assisted living in the area he would like and to tour and speak with the admissions dept there, he voiced understanding. CM will continue to follow and assist with discharge planning/needs. Filter Changing Technician: Karo Odonnell DCPIA - Discharge Planning Initial Assessment Updated by [email or web address]: Karo Odonnell on 01/10/19 4:55 pm * Is the patient Alert and Oriented? Yes * PCP Dr. Wilcox * Pharmacy [facility] on [address] * Preadmission Environment Home Alone * ADLs Independent * Equipment None * List name and contact numbers for known caregivers / representatives who currently or will assist patient after discharge: Mainor cordova - [phone] Fredy cordova - [phone] * Verbal permission to speak to the caregivers and representatives has been obtained from the patient. N/A * Community resources currently utilized None * Additional services required to return to the preadmission environment? Yes * Can the patient safely return to the preadmission environment? Yes * Has this patient been hospitalized within the prior 30 days at any hospital? No Coverage Notice Reviewer: [id number] - Karo Odonnell Notice Issued Date-Time: 01/11/2019 11:47 Notice Type: IM Discharge Notice Notice Delivered To: Patient Relationship to Patient: Self Registered Radiographer Name: Delivery Method: HAND - Hand Delivered Shweta Days: Prior Verbal Notification: Recipient Understood Notice: Yes Recipient Signature: Yes Med Rec Note Co-signed by Attending: Coverage Notice Comment: IMM explained, signed, given, copy placed in Mr Reviewer: [id number] Ramonita Karo Odonnell Notice Issued Date-Time: 01/11/2019 11:47 Notice Type: Patient Choice Letter Notice Delivered To: Patient Relationship to Patient: Self Registered Radiographer Name: Delivery Method: HAND - Hand Delivered Shweta Days: Prior Verbal Notification: Recipient Understood Notice: Yes Recipient Signature: Yes Med Rec Note Co-signed by Attending: Coverage Notice Comment: ENO[facility] for [place] and [place] [facility] first/[facility] and P second Last DP export: 01/11/19 11:02 a Patient Name: GWEN CRISTINA Page [id number] at 1516 All edits/amendments must be made on the electronic document DICTATION DATE: 01/11/19 1515 MOVIE OPERATOR: VILMA 01/11/19 1515 RPT#: [id number] DC DATE: STATUS: ADM IN [facility] [address] [place] [address] END OF REPORT
[2019-01-11] MEDS ORDERED: LOPRESSOR25 MG PO (15:19)
[2019-01-11 16:29] VITALS: BP 101/61
[2019-01-12 12:13] LABS: FUNGUS STAIN Final report (())
--- NOTE | 2019-01-12 16:22 | MORECARE ---
CASE MANAGEMENT DISCHARGE SUMMARY PATIENT: GWEN SANTIAGO UNIT: [id number] ADM DATE: 01/06/19 AGE: 83 : 35 SEX: M ROOM/BED: D.2228 AUTHOR: RADHA,DOC PHYSICIAN: REFERRING PHYSICIAN: MYLES WILCOX MD DATE OF SERVICE: 01/12/19 Discharge Plan Patient Name: GWEN SANTIAGO Facility: [facility]:[place] : 1935 Planned Disposition: Correction Facility Anticipated Discharge Date: Discharge Date: 01/11/2019 Expected LOS: 0 Initial Reviewer: [id number] Initial Review Date: 01/10/2019 Generated: 01/12/19 5:22 pm Comments DCP- Discharge Planning Updated by [email or web address]: Karo Odonnell on 01/11/19 2:[address] I spoke with Lyndsay at [place], they will see him . I spoke with Su at [facility], they will deliver walker today prior to discharge. Home today with home health. CM will continue to follow and assist with discharge planning/needs. DCP- Discharge Planning Updated by [id number]: Karo Odonnell on 01/11/19 10:[address] Anticipate discharge today. I spoke with the patient and he wants to go home. He agrees to home health and agrees to using a walker. [facility] for [place] and [facility] received. I called [facility] and spoke to Fatimah, clinical faxed. I spoke with Su at [facility] for a walker and clinical faxed. His son, Fredy, was on the phone and informed of discharge home. I left a message with Mainor on the phone and informed him of his father's wishes and to return my call if he had any other needs for his father. Patient states his friend, Gregor Garcia and his will come to take him and his vehicle home. CM will continue to follow and assist with discharge planning/needs. DCP- Discharge Planning Updated by [email or web address]: Karo Odonnell on 01/10/19 4:[address] Patient Name: GWEN SANTIAGO Admission Status: Urgent Accout number: [id number] Admission Date: 01-06-2019 : 1935 Admission Diagnosis:OTHER ASCITES Attending: MYLES WILCOX Current LOS: 4 Anticipated DC Date: Planned Disposition: Correction Facility Primary Insurance: NOVASYSMCR Discharge Planning Comments: CM met with patient's son today per son's request to discuss discharge planning/needs. His son (Mainor) states that he would like his father to go to an assisted living or a skilled facility prior to returning home. Patient lives alone and he states his father has fallen down at least once that he knows of. I discussed the availability of rehab, SNF, home health, and DME. He states that he and his brother are looking at assisted living in [facility] or [facility]. He states possibly [facility] or [place] in [place]. I provided Mainor with the ENOCH on skilled facilities and explained the insurance aspect. He states that he believes his father also has insurance for assisted living. I told him he would need to pick an assisted living in the area he would like and to tour and speak with the admissions dept there, he voiced understanding. CM will continue to follow and assist with discharge planning/needs. Folder Machine: Karo Odonnell DCPIA - Discharge Planning Initial Assessment Updated by [email or web address]: Karo Odonnell on 01/10/19 4:55 pm * Is the patient Alert and Oriented? Yes * PCP Dr. Wilcox * Pharmacy [facility] on [address] * Preadmission Environment Home Alone * ADLs Independent * Equipment None * List name and contact numbers for known caregivers / representatives who currently or will assist patient after discharge: Mainor cordova - [phone] Fredy Santiago art - [phone] * Verbal permission to speak to the caregivers and representatives has been obtained from the patient. N/A * Community resources currently utilized None * Additional services required to return to the preadmission environment? Yes * Can the patient safely return to the preadmission environment? Yes * Has this patient been hospitalized within the prior 30 days at any hospital? No Coverage Notice Reviewer: [id number] - Karo Odonnell Notice Issued Date-Time: 01/11/2019 11:47 Notice Type: IM Discharge Notice Notice Delivered To: Patient Relationship to Patient: Self Market Garden Worker Name: Delivery Method: HAND - Hand Delivered Shweta Days: Prior Verbal Notification: Recipient Understood Notice: Yes Recipient Signature: Yes Med Rec Note Co-signed by Attending: Coverage Notice Comment: IMM explained, signed, given, copy placed in Mr Reviewer: [id number] Ramonita Karo Finchingrid Notice Issued Date-Time: 01/11/2019 11:47 Notice Type: Patient Choice Letter Notice Delivered To: Patient Relationship to Patient: Self Market Garden Worker Name: Delivery Method: HAND - Hand Delivered Shweta Days: Prior Verbal Notification: Recipient Understood Notice: Yes Recipient Signature: Yes Med Rec Note Co-signed by Attending: Coverage Notice Comment: [facility] for [place] and [place] [facility] first/[facility] and [facility] second Last DP export: 01/11/19 2:16 p Patient Name: GWEN SANTIAGO Page 50812 at 1622 All edits/amendments must be made on the electronic document DICTATION DATE: 01/12/191621 CERTIFIED BENCH JEWELER TECHNICIAN: VILMA 01/12/19 1622 RPT#: [id number] DC DATE:01/11/19 STATUS: DIS IN [facility] [address] [place] [address] END OF REPORT
[2019-01-12 17:10] LABS: ACID FAST SMEAR Negative (()); AFB SPECIMEN PROCESSING Not Indicated (())
== END 2019-01-11 17:02 | disposition home health service (06) | DRG 433 ==
LOC: D.MS 12:38
PROVIDERS: Family Medicine; General Practice; Internal Medicine Cardiovascular Disease; Internal Medicine Nephrology; ADMIT Family Medicine; ATTEND Family Medicine
PROC: 0W9G3ZZ Drainage of Peritoneal Cavity, Percutaneous Approach (ICD-10-PCS; principal; 2019-01-10 14:55)
DX: K74.60 Unspecified cirrhosis of liver (principal); R18.8 Other ascites; D64.9 Anemia, unspecified; K21.9 Gastro-esophageal reflux disease without esophagitis; I25.10 Atherosclerotic heart disease of native coronary artery without angina pectoris; E03.9 Hypothyroidism, unspecified